=== PATIENT | female | born 1955 | race Caucasian/White ===

== ENCOUNTER → 2020-06-06 | Outpatient (CLI) | payer MEDICARE ==
[~2020-06-06] MED LIST: DCS100C PO; ENXP40I.4 SQ; ESCI20TA2 PO; FERR-57 PO; FESO8TAB PO; FLX10C; GABA800T2 PO; GBPN100C PO; GLPZ5T PO; HYDR-3002 PO; HYOS0.1217 PO; KCL20TCR; LISI5TAB14 PO; LORA0.5T PO; LOVA20TA2 PO; MTP50T; PHN100C PO; POTA10CA43 PO; TRM50T PO; WRF5T PO
[2020-06-06 10:38] LABS: HEMOGLOBIN 8.2 g/dL (11.5-16.0); MEAN PLATELET VOLUME 9.8 fL (9.0-12.2); WHITE BLOOD COUNT 6.2 10^3/uL (4.3-11.0)
[2020-06-06 11:00] LABS: ALANINE AMINOTRANSFERASE < 6 U/L (0-55); ALKALINE PHOSPHATASE 124 U/L (40-136); BILIRUBIN,TOTAL 0.2 MG/DL (0.1-1.0); BUN/CREATININE RATIO 16; CALCIUM 7.4 MG/DL (8.5-10.1); CARBON DIOXIDE 19 MMOL/L (21-32); CHLORIDE 107 MMOL/L (98-107); CREATININE SERUM 2.64 MG/DL (0.60-1.30); GFR ESTIMATED 18; GLUCOSE 241 MG/DL (70-105); MAGNESIUM 3.3 MG/DL (1.6-2.4); PHOSPHORUS 5.8 MG/DL (2.3-4.7); SODIUM 132 MMOL/L (135-145); TOTAL PROTEIN 6.7 GM/DL (6.4-8.2)
[2020-06-06 11:15] LABS: POTASSIUM 7.1 MMOL/L (3.6-5.0)
== END ==
LOC: LABNPT 10:27
PROVIDERS: ATTEND Nurse Practitioner Family
DX: D50.9 Iron deficiency anemia, unspecified (principal); E11.9 Type 2 diabetes mellitus without complications; E55.9 Vitamin D deficiency, unspecified
CPT/HCPCS: 80053; 80185; 82306; 82607; 82728; 82746; 83036; 83540; 83605; 83735; 84100; 85027

== ENCOUNTER → 2020-06-30 | Outpatient (CLI) | payer MEDICARE ==
[2020-06-30 10:44] LABS: ALBUMIN 2.7 GM/DL (3.2-4.5); BILIRUBIN,TOTAL 0.1 MG/DL (0.1-1.0); CALCIUM 7.3 MG/DL (8.5-10.1); CREATININE SERUM 2.74 MG/DL (0.60-1.30); POTASSIUM 6.4 MMOL/L (3.6-5.0); TOTAL PROTEIN 6.2 GM/DL (6.4-8.2)
== END ==
LOC: LABNPT 10:22
DX: E87.5 Hyperkalemia (principal); N18.9 Chronic kidney disease, unspecified; G82.20 Paraplegia, unspecified; E87.1 Hypo-osmolality and hyponatremia; R79.0 Abnormal level of blood mineral
CPT/HCPCS: 80053; 83735; 84100

== ENCOUNTER → 2020-07-07 | Outpatient (CLI) | payer MEDICARE ==
[2020-07-07 11:47] LABS: BILIRUBIN,URINE NEGATIVE (NEGATIVE); CLARITY,URINE TURBID; COLOR,URINE YELLOW; GLUCOSE, URINE (UA) NEGATIVE (NEGATIVE); KETONES,URINE NEGATIVE (NEGATIVE); LEUKOCYTE ESTERASE ,URINE 2+ (NEGATIVE); NITRITE,URINE POSITIVE (NEGATIVE); PH,URINE 8.5 (5-9); PROTEIN,URINE 1+ (NEGATIVE)
[2020-07-07 11:57] LABS: BACTERIA,URINE LARGE /HPF; RBC,URINE 0-2 /HPF; TRIPLE PHOSPHATE CRYSTAL,UR LARGE /LPF; WBC,URINE 0-2 /HPF
== END ==
LOC: LABNPT 11:41
PROVIDERS: ATTEND Nurse Practitioner Family
DX: N18.9 Chronic kidney disease, unspecified (principal); N17.9 Acute kidney failure, unspecified; N31.2 Flaccid neuropathic bladder, not elsewhere classified
CPT/HCPCS: 81000; 87077; 87088; 87186

== ENCOUNTER → 2020-09-08 | Outpatient (CLI) | payer MEDICARE ==
[2020-09-08 11:22] LABS: BILIRUBIN,URINE NEGATIVE (NEGATIVE); CLARITY,URINE CLOUDY; COLOR,URINE RED; GLUCOSE, URINE (UA) TRACE (NEGATIVE); KETONES,URINE NEGATIVE (NEGATIVE); LEUKOCYTE ESTERASE ,URINE 3+ (NEGATIVE); NITRITE,URINE NEGATIVE (NEGATIVE); PROTEIN,URINE 2+ (NEGATIVE)
[2020-09-08 11:34] LABS: BACTERIA,URINE LARGE /HPF; RBC,URINE TNTC /HPF; WBC,URINE 50-100 /HPF
== END ==
LOC: LABNPT 11:16
PROVIDERS: ATTEND Nurse Practitioner Family
DX: N31.9 Neuromuscular dysfunction of bladder, unspecified (principal); N39.0 Urinary tract infection, site not specified; Z96.0 Presence of urogenital implants
CPT/HCPCS: 81000; 87077; 87088; 87184

== ENCOUNTER → 2020-10-13 | Outpatient (CLI) | payer MEDICARE ==
[2020-10-13 11:00] LABS: BILIRUBIN,URINE 1+ (NEGATIVE); CLARITY,URINE SL CLOUDY; COLOR,URINE BROWN; GLUCOSE, URINE (UA) NEGATIVE (NEGATIVE); KETONES,URINE NEGATIVE (NEGATIVE); LEUKOCYTE ESTERASE ,URINE 2+ (NEGATIVE); NITRITE,URINE NEGATIVE (NEGATIVE); PH,URINE 8.5 (5-9); PROTEIN,URINE 3+ (NEGATIVE)
[2020-10-13 11:48] LABS: BACTERIA,URINE LARGE /HPF
[2020-10-13 11:49] LABS: TRIPLE PHOSPHATE CRYSTAL,UR LARGE /LPF
== END ==
LOC: LABNPT 10:00
DX: N31.9 Neuromuscular dysfunction of bladder, unspecified (principal); N39.0 Urinary tract infection, site not specified; Z96.0 Presence of urogenital implants
CPT/HCPCS: 81000; 87077; 87088; 87186

== ENCOUNTER 2020-10-30 11:22 | Inpatient (IN) | payer MEDICARE ==
[~2020-10-30] VITALS: Ht 160 cm; Wt 177.0 kg
--- NOTE | 2020-10-30 11:50 | ED General ---
General Chief Complaint: General Problems/Pain Stated Complaint: UNABLE TO TAKE CARE OF HER SELF Nursing Triage Note: PT PRESENTS TO ED VIA EMS FROM HOME WITH COMPLAINTS OF NOT BEING ABLE TO CARE FOR HERSELF. 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 Nursing Sepsis Screen: No Definite Risk Source of Information: Patient Exam Limitations: No Limitations History of Present Illness Date Seen by Provider: Oct 30, 2020 Time Seen by Provider: 11:49 Initial Comments To ER with reports of unable to care for herself. Ambulance was called by Adult Protective Services due to living conditions. Her house was infested with insects, covered in feces. She has left hemiparesis following a stroke many years ago. Her boyfriend with whom she lives and who normally provides care for her is currently admitted to the hospital as well. Timing/Duration: 1-2 Days Severity: Moderate Associated Systoms: Denies Symptoms Allergies and Home Medications Allergies Coded Allergies: Hydrocodone (Verified Allergy, Unknown, 01/16/06) acetaminophen (Verified Allergy, Unknown, 01/16/06) Home Medications Docusate Sodium 100 Mg Cap, 100 MG PO BID PRN, (Reported) Ferrous Sulfate 325 Mg Tablet, 325 MG PO DAILY, (Reported) Fesoterodine Fumarate 8 Mg Tab.sr.24h, 8 MG PO DAILY, (Reported) Glipizide 5 Mg Tablet, 5 MG PO DAILY, (Reported) Hydralazine Hcl 10 Mg Tablet, 25 MG PO BID, (Reported) Lisinopril 5 Mg Tablet, 2.5 MG PO DAILY, (Reported) Lorazepam 0.5 Mg Tablet, 1 EACH PO BID, (Reported) Lovastatin 20 Mg Tablet, 40 EACH PO DAILY, (Reported) Phenytoin Sodium Extended 100 Mg Capsule, 300 MG PO DAILY, (Reported) Phenytoin Sodium Extended 100 Mg Capsule, 200 MG PO HS, (Reported) Patient Home Medication List Home Medication List Reviewed: Yes Review of Systems Review of Systems Constitutional: see HPI EENTM: see HPI Respiratory: no symptoms reported Cardiovascular: no symptoms reported Genitourinary: no symptoms reported Musculoskeletal: no symptoms reported Skin: no symptoms reported Psychiatric/Neurological: No Symptoms Reported Hematologic/Lymphatic: No Symptoms Reported Past Ehekwxf-Rdfbhk-Uvbfcf Hx Patient Social History Alcohol Use: Denies Use Smoking Status: Never a Smoker Recent Infectious Disease Expo: No Recent Hopitalizations: Yes Immunizations Up To Date Date of Pneumonia Vaccine: Feb 02, 2013 Date of Influenza Vaccine: Feb 02, 2014 Past Medical History Surgeries: Yes Section, Gallbladder, Tonsillectomy Respiratory: No (has a nebulizer at home, denies respiratory) Cardiac: Yes Neurological: Yes (R SIDE PARALYSIS) Seizure Disorder, Stroke Reproductive Disorders: No Gastrointestinal: No Musculoskeletal: Yes (MORBID OBESITY) Endocrine: Yes Diabetes, Non-Insulin dep Cancer: No Psychosocial: No Integumentary: No Blood Disorders: No Physical Exam Vital Signs Vital Signs - First Documented 10/30/20 11:25 Temp 36.6 Pulse 81 Resp 20 B/P (MAP) 129/69 (89) Pulse Ox 99 Capillary Refill : Less Than 3 Seconds Height, Weight, BMI Height: 5'3" Weight: 377lbs. oz. 171.555950om; 69.00 BMI Method:Stated General Appearance: No Apparent Distress, WD/WN, Obese, Other (Patient voices no complaints, she is in no distress and hemodynamically stable.) Eyes: Bilateral Eye Normal Inspection, Bilateral Eye PERRL, Bilateral Eye EOMI Neck: Full Range of Motion, Normal Inspection Respiratory: No Accessory Muscle Use, No Respiratory Distress Cardiovascular: Regular Rate, Rhythm, Normal Peripheral Pulses Gastrointestinal: Normal Bowel Sounds, Non Tender, Soft Extremity: Normal Capillary Refill, Normal Inspection Neurologic/Psychiatric: Alert, Oriented x3 Skin: Normal Color, Warm/Dry Focused Exam Lactate Level 10/30/20 12:00: Lactic Acid Level 0.98 Lactic Acid Level Laboratory Tests Test 10/30/20 12:00 Lactic Acid Level 0.98 MMOL/L (0.50-2.00) Progress/Results/Core Measures Suspected Sepsis Recent Fever Within 48 Hours: No Infection Criteria Present: None New/Unexplained Altered Menta: No Sepsis Screen: No Definite Risk SIRS Temperature: Pulse: 81 Respiratory Rate: 20 Laboratory Tests 10/30/20 11:30: White Blood Count 9.9 Blood Pressure 129 /69 Mean: 89 10/30/20 12:00: Lactic Acid Level 0.98 Laboratory Tests 10/30/20 11:30: Creatinine 3.06H, Platelet Count 181, Total Bilirubin 0.2 Results/Orders Lab Results Laboratory Tests Test 10/30/20 11:30 10/30/20 12:00 10/30/20 14:32 Range/Units White Blood Count 9.9 4.3-11.0 10^3/uL Red Blood Count 2.97 L 3.80-5.11 10^6/uL Hemoglobin 9.5 L 11.5-16.0 g/dL Hematocrit 30 L 35-52 % Mean Corpuscular Volume 101 H 80-99 fL Mean Corpuscular Hemoglobin 32 25-34 pg Mean Corpuscular Hemoglobin Concent 32 32-36 g/dL Red Cell Distribution Width 13.3 10.0-14.5 % Platelet Count 181 130-400 10^3/uL Mean Platelet Volume 10.2 9.0-12.2 fL Immature Granulocyte % (Auto) 1 % Neutrophils (%) (Auto) 79 H 42-75 % Lymphocytes (%) (Auto) 12 12-44 % Monocytes (%) (Auto) 7 0-12 % Eosinophils (%) (Auto) 2 0-10 % Basophils (%) (Auto) 0 0-10 % Neutrophils # (Auto) 7.8 1.8-7.8 10^3/uL Lymphocytes # (Auto) 1.2 1.0-4.0 10^3/uL Monocytes # (Auto) 0.7 0.0-1.0 10^3/uL Eosinophils # (Auto) 0.2 0.0-0.3 10^3/uL Basophils # (Auto) 0.0 0.0-0.1 10^3/uL Immature Granulocyte # (Auto) 0.1 0.0-0.1 10^3/uL Sodium Level 142 135-145 MMOL/L Potassium Level 5.2 H 3.6-5.0 MMOL/L Chloride Level 111 H 98-107 MMOL/L Carbon Dioxide Level 19 L 21-32 MMOL/L Anion Gap 12 5-14 MMOL/L Blood Urea Nitrogen 53 H 7-18 MG/DL Creatinine 3.06 H 0.60-1.30 MG/DL Estimat Glomerular Filtration Rate 15 BUN/Creatinine Ratio 17 Glucose Level 146 H 70-105 MG/DL Calcium Level 7.8 L 8.5-10.1 MG/DL Corrected Calcium 8.5 8.5-10.1 MG/DL Total Bilirubin 0.2 0.1-1.0 MG/DL Aspartate Amino Transf (AST/SGOT) 5 5-34 U/L Alanine Aminotransferase (ALT/SGPT) < 6 0-55 U/L Alkaline Phosphatase 86 40-136 U/L Total Protein 6.9 6.4-8.2 GM/DL Albumin 3.1 L 3.2-4.5 GM/DL Lactic Acid Level 0.98 0.50-2.00 MMOL/L My Orders Orders - MAYCO STRANGE APRN Cbc With Automated Diff (10/30/20 11:47) Comprehensive Metabolic Panel (10/30/20 11:47) Blood Culture (10/30/20 11:47) Sputum Culture (10/30/20 11:47) Urinalysis (10/30/20 11:47) Urine Culture (10/30/20 11:47) Protime With Inr (10/30/20 11:47) Partial Thromboplastin Time (10/30/20 11:47) Chest 1 View, Ap/Pa Only (10/30/20 11:47) Ed Iv/Invasive Line Start (10/30/20 11:47) Vital Signs Adult Sepsis Patie Q15M (10/30/20 11:47) O2 (10/30/20 11:47) Remove Rings In Anticipation O (10/30/20 11:47) Lactic Acid Analyzer (10/30/20 11:47) Ns Iv 1000 Ml (Sodium Chloride 0.9%) (10/30/20 12:30) Vital Signs/I&O 10/30/20 11:25 Temp 36.6 Pulse 81 Resp 20 B/P (MAP) 129/69 (89) Pulse Ox 99 Capillary Refill : Less Than 3 Seconds Blood Pressure Mean: 89 Departure Communication (Admissions) We removed her old 26 [place]ian latex free Leiva catheter and replaced it with a new latex free 16 Ghanaian Leiva catheter as we do not have latex free 26 Ghanaian Leiva catheters. Impression Primary Impression: Acute kidney injury Additional Impressions: General weakness Left hemiparesis Disposition: ADMITTED INPATIENT Condition: Stable Admissions Decision to Admit Reason: Admit from ER (General) Decision to Admit/Date: Oct 30, 2020 Time/Decision to Admit Time: 14:43 Departure-Patient Inst. Referrals: [facility] (PCP/Family) Primary Care Physician MAYCO STRANGE APRN Oct 30, 2020 11:50
[2020-10-30 12:09] LABS: BASOPHILS % (AUTO) 0 % (0-10); EOSINOPHILS # (AUTO) 0.2 10^3/uL (0.0-0.3); EOSINOPHILS % (AUTO) 2 % (0-10); HEMATOCRIT 30 % (35-52); HEMOGLOBIN 9.5 g/dL (11.5-16.0); LYMPHOCYTES # (AUTO) 1.2 10^3/uL (1.0-4.0); LYMPHOCYTES % (AUTO) 12 % (12-44); MEAN CORPUSCULAR HEMOGLOBIN 32 pg (25-34); MEAN CORPUSCULAR HGB CONC 32 g/dL (32-36); MEAN CORPUSCULAR VOLUME 101 fL (80-99); MEAN PLATELET VOLUME 10.2 fL (9.0-12.2); MONOCYTES # (AUTO) 0.7 10^3/uL (0.0-1.0); MONOCYTES % (AUTO) 7 % (0-12); NEUTROPHILS # (AUTO) 7.8 10^3/uL (1.8-7.8); NEUTROPHILS % (AUTO) 79 % (42-75); PLATELET COUNT 181 10^3/uL (130-400); WHITE BLOOD COUNT 9.9 10^3/uL (4.3-11.0)
[2020-10-30 12:11] LABS: ALBUMIN 3.1 GM/DL (3.2-4.5)
[2020-10-30 12:12] LABS: CHLORIDE 111 MMOL/L (98-107); POTASSIUM 5.2 MMOL/L (3.6-5.0); SODIUM 142 MMOL/L (135-145)
[2020-10-30 12:13] LABS: CALCIUM 7.8 MG/DL (8.5-10.1)
[2020-10-30 12:14] LABS: GLUCOSE 146 MG/DL (70-105); TOTAL PROTEIN 6.9 GM/DL (6.4-8.2)
[2020-10-30 12:15] LABS: CARBON DIOXIDE 19 MMOL/L (21-32)
[2020-10-30 12:16] LABS: BILIRUBIN,TOTAL 0.2 MG/DL (0.1-1.0)
[2020-10-30 12:17] LABS: ALKALINE PHOSPHATASE 86 U/L (40-136); CREATININE SERUM 3.06 MG/DL (0.60-1.30); GFR ESTIMATED 15
[2020-10-30 12:19] LABS: BUN/CREATININE RATIO 17
[2020-10-30 12:20] LABS: ALANINE AMINOTRANSFERASE < 6 U/L (0-55)
[2020-10-30] MEDS ORDERED: NS IV 1000 ML 1,000 ML IV SCH (12:30)
--- NOTE | 2020-10-30 12:51 | Diagnostic Imaging Report ---
INDICATION: Sepsis. Time of exam 12:21 p.m. Correlation is made with prior chest 09/10/2011. The heart is enlarged. There is blunting of the left costophrenic angle which could indicate minimal pleural fluid or pleural thickening. Otherwise the lungs are clear. There is no failure. No pneumothorax is identified. IMPRESSION: Cardiomegaly with trace left pleural fluid or pleural thickening. Dictated by: Dictated on workstation # [id number]
[2020-10-30 14:37] LABS: BILIRUBIN,URINE NEGATIVE (NEGATIVE); CLARITY,URINE CLEAR; COLOR,URINE YELLOW; GLUCOSE, URINE (UA) NEGATIVE (NEGATIVE); KETONES,URINE NEGATIVE (NEGATIVE); LEUKOCYTE ESTERASE ,URINE 2+ (NEGATIVE); NITRITE,URINE POSITIVE (NEGATIVE); PROTEIN,URINE 2+ (NEGATIVE)
[2020-10-30 15:02] LABS: RBC,URINE 25-50 /HPF; WBC,URINE 25-50 /HPF
[2020-10-30 15:03] LABS: BACTERIA,URINE LARGE /HPF
[2020-10-30 15:26] VITALS: BP 122/84
[2020-10-30 16:13] LABS: PROTHROMBIN TIME PATIENT 13.3 SEC (12.2-14.7)
[2020-10-30] MEDS ORDERED: ACETAMINOPHEN 325 MG TABLET PO PRN (16:15)
[2020-10-30] MEDS ORDERED: LORazepam INJ 2 MG/ML (ATIVAN) VIAL IV PRN (16:15)
[2020-10-30] MEDS ORDERED: LORazepam 1 MG (ATIVAN) TAB PO PRN (16:15)
[2020-10-30] MEDS ORDERED: CATHETER FLUSH 10 ML SYR IV PRN (16:15)
[2020-10-30] MEDS ORDERED: ONDANSETRON 4 MG/2 ML (SDV) Z0FRAN IV PRN (16:15)
[2020-10-30] MEDS: inSUlin ASPART (NovoLOG) 1 UNIT/0.01 ML (CHARGE PER UNIT) SC SCH ×2 (16:40→21:11)
[2020-10-30] MEDS: cefTRIAXone 1,000 MG in WATER (STERILE) FOR INJECTION 10 ML IV SCH (16:40)
[2020-10-30] MEDS: LACTATED RINGERS 1,000 ML IV SCH (16:41)
--- NOTE | 2020-10-30 18:00 | History & Physical-Hospitalist ---
History of Present Illness HPI/Chief Complaint Chief complaint: Inability to care for self History of present illness: This is a 65-year-old white female clinic patient of [facility] who suffered a stroke in 2002 with left-sided weakness remains bedbound who presents to the hospital after her caregiver boyfriend was hospitalized in the same hospital and unable to care for self. Patient was found to be in atrocious living conditions with infestation. Patient is currently requiring a Sparks catheter and we will restart all of her home medication. services host will be consulted. Source: patient Exam Limitations: no limitations Date Seen 10/30/20 Time Seen by a Provider: 18:20 Attending Physician Rose Gaming DO [facility] [place] Referring Physician Date of Admission Oct 30, 2020 at 13:55 Home Medications & Allergies Home Medications Reviewed patient Home Medication Reconciliation performed by pharmacy medication reconciliations cdl service technician and/or nursing. Patients Allergies have been reviewed. Allergies Allergies Coded Allergies adhesive tape (Verified Allergy, Intermediate, 10/30/20) PT REPORTS IT PULLS SKIN OFF AND SHE GETS BLISTERS FROM TAPE ADHESIVE latex (Verified Allergy, Intermediate, 10/30/20) PT REPORTS BLADDER SPASMS WHEN USING LATEX SPARKS CATH hydrocodone (Verified Allergy, Unknown, 01/16/06) Past Fdaltnh-Kihxfj-Yulnsb Hx Patient Social History Marrital Status: cohabiting Employed/Student: unemployed Tobacco Use?: No Smoking Status: Never a Smoker Alcohol Use?: No Pt feels they are or have been: No Immunizations Up To Date Date of Influenza Vaccine: Feb 02, 2014 Tetanus Booster (TDap): Unknown Date of Pneumonia Vaccine: Feb 02, 2013 Current Status status: No status: No Advance Directives: No Communicates: Verbally Primary Language: Martiniquais Preferred Spoken Language: Martiniquais Is interpretation needed?: Yes Sensory deficits: Vision impairment Implanted or Applied Medical D: None Past Medical History Surgeries: Section, Gallbladder, Tonsillectomy Seizure Disorder, Stroke Diabetes, Non-Insulin dep Blood Disorders: No Review of Systems Constitutional: see HPI, weakness Physical Exam Physical Exam Vital Signs Vital Signs - First Documented 10/30/20 10/30/20 11:25 15:10 Temp 36.6 Pulse 81 Resp 20 B/P (MAP) 129/69 (89) Pulse Ox 99 O2 Delivery Room Air Capillary Refill : Less Than 3 Seconds Height, Weight, BMI Height: 5'3" Weight: 377lbs. oz. 171.267623ld; 69.14 BMI Method:Stated General Appearance: No Apparent Distress, Chronically ill, Obese Eyes: Right Eye Normal Inspection, Right Eye PERRL HEENT: PERRL/EOMI, Normal ENT Inspection, Pharynx Normal, Moist Mucous Membran es Neck: Full Range of Motion, Normal Inspection, Non Tender Respiratory: Chest Non Tender, Lungs Clear, Normal Breath Sounds, No Accessory Muscle Use, No Respiratory Distress Cardiovascular: Regular Rate, Rhythm, No Edema, No Gallop, No JVD, No Murmur, Normal Peripheral Pulses Gastrointestinal: Normal Bowel Sounds, No Organomegaly, No Pulsatile Mass, Non Tender, Soft Back: Normal Inspection, No CVA Tenderness, No Vertebral Tenderness Extremity: Normal Capillary Refill, Normal Inspection, Normal Range of Motion, Non Tender, No Calf Tenderness, No Pedal Edema Neurologic/Psychiatric: Alert, Oriented x3, Normal Mood/Affect, Motor Weakness (Left-sided weakness) Skin: Normal Color, Warm/Dry Lymphatic: No Adenopathy Results Results/Procedures Labs Laboratory Tests 10/30/20 11:30 Patient resulted labs reviewed. Assessment/Plan Admission Diagnosis Assessment: Inability to care for self at home due to bedbound status and caregiver in the hospital Previous stroke 2002 with left-sided weakness Severe debility bedbound Diabetes mellitus Seizure disorder Morbid obesity with BMI of 69 Plan: Supportive care Sparks catheter Home meds Admission Status: Inpatient Order (span 2 midnights) Reason for Inpatient Admission: Bedbound and inability to care for self Diagnosis/Problems Diagnosis/Problems (1) General weakness Status: Acute (2) Left hemiparesis Status: Acute (3) Acute kidney injury Status: Acute ROSE GAMING DO Oct 30, 2020 18:00
[2020-10-30] MEDS ORDERED: MONT10TA32 PO (18:46)
[2020-10-30] MEDS ORDERED: SERT-414 PO (18:46)
[2020-10-30] MEDS ORDERED: GABA-486 PO (18:46)
[2020-10-30 19:04] VITALS: BP 112/57
[2020-10-30] MEDS ORDERED: LOPERAMIDE 2 MG (IMODIUM) TABLET PO PRN (21:00)
[2020-10-30] MEDS ORDERED: ACETAMINOPHEN 500 MG TAB (TYLENOL) PO PRN (21:00)
[2020-10-30] MEDS ORDERED: MELATONIN 3 MG TABLET PO PRN (21:00)
[2020-10-30] MEDS ORDERED: SENNA W/DOCUSATE (SENOKOT S) TABLET PO PRN (21:00)
[2020-10-30] MEDS ORDERED: diphenhydrAMINE 25 MG TAB (BENADRYL) PO PRN (21:00)
[2020-10-30] MEDS ORDERED: DOCUSATE SODIUM 100 MG (COLACE) CAP PO PRN (21:00)
[2020-10-30] MEDS ORDERED: CALCIUM CARBONATE 500 MG (TUMS) TAB.CHEW PO PRN (21:00)
[2020-10-30] MEDS: SIMvastatin 20 MG (ZOCOR) TAB PO SCH (22:10)
[2020-10-30] MEDS: GABAPENTIN 100 MG (NEURONTIN) CAP PO SCH (22:11)
[2020-10-30] MEDS: LORazepam 0.5 MG (ATIVAN) TABLET PO SCH (22:11)
[2020-10-30] MEDS: SIMETHICONE 80 MG (MYLICON) CHEW PO PRN (22:11)
[2020-10-30] MEDS: MONTELUKAST 10 MG (SINGULAIR) TAB PO SCH (22:11)
[2020-10-30] MEDS: PHENYTOIN 100 MG (DILANTIN) CAP PO SCH (22:30)
[2020-10-30] MEDS: ENOXAPARIN 60 MG/0.6 ML (LOVENOX) SYR SC SCH (22:30)
[2020-10-31] VITALS (7 sets, daily range): BP systolic 102–132; BP diastolic 48–66
[2020-10-31] MEDS: LACTATED RINGERS 1,000 ML IV SCH (01:54)
[2020-10-31 06:28] LABS: BASOPHILS % (AUTO) 0 % (0-10); EOSINOPHILS # (AUTO) 0.2 10^3/uL (0.0-0.3); EOSINOPHILS % (AUTO) 2 % (0-10); HEMATOCRIT 26 % (35-52); HEMOGLOBIN 8.1 g/dL (11.5-16.0); LYMPHOCYTES # (AUTO) 1.2 10^3/uL (1.0-4.0); LYMPHOCYTES % (AUTO) 17 % (12-44); MEAN CORPUSCULAR HEMOGLOBIN 31 pg (25-34); MEAN CORPUSCULAR HGB CONC 31 g/dL (32-36); MEAN CORPUSCULAR VOLUME 101 fL (80-99); MEAN PLATELET VOLUME 9.9 fL (9.0-12.2); MONOCYTES # (AUTO) 0.7 10^3/uL (0.0-1.0); MONOCYTES % (AUTO) 9 % (0-12); NEUTROPHILS # (AUTO) 5.3 10^3/uL (1.8-7.8); NEUTROPHILS % (AUTO) 71 % (42-75); PLATELET COUNT 132 10^3/uL (130-400); WHITE BLOOD COUNT 7.4 10^3/uL (4.3-11.0)
[2020-10-31] MEDS: inSUlin ASPART (NovoLOG) 1 UNIT/0.01 ML (CHARGE PER UNIT) SC SCH ×4 (06:28→21:01)
--- NOTE | 2020-10-31 06:30 | Progress Note - Hospitalist ---
Subjective HPI/CC On Admission Date Seen by Provider: Oct 31, 2020 Time Seen by Provider: 09:00 Chief complaint: Inability to care for self History of present illness: This is a 65-year-old white female clinic patient of [facility] who suffered a stroke in 2002 with left-sided weakness remains bedbound who presents to the hospital after her caregiver boyfriend was hospitalized in the same hospital and unable to care for self. Patient was found to be in atrocious living conditions with infestation. Patient is currently requiring a Leiva catheter and we will restart all of her home medication. support services tech will be consulted. Subjective/Events-last exam Pt had an uneventful night Bacteremia of Staph noted so initiated Zyvox due to chronic kidney disease Creatinine 2.94 today E. coli on UTI so Rocephin will be maintained Hep-locking IV fluid Midline will be needed due to morbid obesity Review of Systems General: Fatigue Focused Exam Lactate Level 10/30/20 12:00: Lactic Acid Level 0.98 Objective Exam Vital Signs Vital Signs Date Time Temp Pulse Resp B/P (MAP) Pulse Ox O2 Delivery O2 Flow Rate FiO2 11/01/20 04:32 36.6 79 18 102/50 (67) 97 Room Air Capillary Refill : Less Than 3 Seconds General Appearance: No Apparent Distress, WD/WN, Chronically ill, Obese Respiratory: Lungs Clear Cardiovascular: Regular Rate, Rhythm Neurologic/Psychiatric: Alert, Oriented x3 Results/Procedures Lab Laboratory Tests 10/31/20 06:15 Patient resulted labs reviewed. Assessment/Plan Assessment and Plan Assess & Plan/Chief Complaint Assessment: Inability to care for self at home due to bedbound status and caregiver in the hospital Previous stroke 2002 with left-sided weakness Staph bacteremia placed on Zyvox Chronic kidney disease UTI on Rocephin Severe debility bedbound Diabetes mellitus Seizure disorder Morbid obesity with BMI of 69 Plan: Supportive care Leiva catheter Home meds 10/31/2020: Home meds PT and OT shelter placement Antibiotics Diagnosis/Problems Diagnosis/Problems (1) General weakness Status: Acute (2) Left hemiparesis Status: Acute (3) Acute kidney injury Status: Acute THEA ROSE DO Oct 31, 2020 06:30
[2020-10-31 06:39] LABS: ALBUMIN 2.7 GM/DL (3.2-4.5); CHLORIDE 112 MMOL/L (98-107); SODIUM 139 MMOL/L (135-145)
[2020-10-31 06:40] LABS: CALCIUM 7.4 MG/DL (8.5-10.1)
[2020-10-31 06:41] LABS: GLUCOSE 97 MG/DL (70-105); TOTAL PROTEIN 5.7 GM/DL (6.4-8.2)
[2020-10-31 06:42] LABS: CARBON DIOXIDE 17 MMOL/L (21-32)
[2020-10-31 06:43] LABS: BILIRUBIN,TOTAL 0.2 MG/DL (0.1-1.0)
[2020-10-31 06:45] LABS: ALKALINE PHOSPHATASE 74 U/L (40-136); CREATININE SERUM 2.94 MG/DL (0.60-1.30); GFR ESTIMATED 16
[2020-10-31 06:46] LABS: BUN/CREATININE RATIO 18
[2020-10-31 06:48] LABS: ALANINE AMINOTRANSFERASE < 6 U/L (0-55)
[2020-10-31] MEDS: LORazepam 0.5 MG (ATIVAN) TABLET PO SCH ×2 (08:35→21:12)
[2020-10-31] MEDS: ENOXAPARIN 60 MG/0.6 ML (LOVENOX) SYR SC SCH ×2 (08:35→21:12)
[2020-10-31] MEDS: glipiZIDE 5 MG (GLUCOTROL) TAB PO SCH (08:35)
[2020-10-31] MEDS: PHENYTOIN 100 MG (DILANTIN) CAP PO SCH ×2 (08:35→21:12)
[2020-10-31] MEDS: SERTRALINE 100 MG (ZOLOFT) TAB PO SCH (08:35)
[2020-10-31] MEDS: LINEZOLID IVPB 300 ML IV SCH ×2 (12:33→21:12)
--- NOTE | 2020-10-31 13:35 | Occupational Therapy Eval ---
OT Evaluation-General/PLF Medical Diagnosis Admission Date Oct 30, 2020 at 13:55 Medical Diagnosis: TYRONE, generalized weakness Onset Date: Oct 30, 2020 Therapy Diagnosis Therapy Diagnosis: weakness Height/Weight Height (Feet): 5 Height (Inches): 3 Weight (Pounds): 377 Precautions Precautions/Isolations: Contact Isolation, Fall Prevention Referral Physician: Amberly Waterman Reason: Evaluation/Treatment Medical History Pertinent Medical History: CVA, DM Additional Medical History seizure Current History Present to hospital after her caregiver/SO was hospitalized and she is unable to care for herself. Pt's house was found to be infested with insects and covered in feces. Social History Current Living Status: Significant Other ADL-Prior Level of Function SCALE: Activities may be completed with or without assistive devices. 4-Naktnyabpu-rilupmm completes the activity by him/herself with no assistance from a helper. 5-Set-up or Clean-up Assistance-helper sets up or cleans up; patient completes activity. [place] assists only prior to or following the activity. 4-Supervision or Touching Assistance-helper provides verbal cues and/or touching/steadying and/or contact guard assistance as patient completes activity. Assistance may be provided throughout the activity or intermittently. 3-Partial/Moderate Assistance-helper does LESS THAN HALF the effort. [place] lifts, holds or supports trunk or limbs, but provides less than half the effort. 2-Substantial/Maximal Assistance-helper does MORE THAN HALF the effort. [place] lifts or holds trunk or limbs and provides more than half the effort. 8-Himospbcv-wrkfgs does ALL the effort. Patient does none of the effort to complete the activity. Or, the assistance of 2 or more helpers is required for the patient to complete the activity. If activity was not attempted, code reason: 7-Patient Refused. 9-Not Applicable-not attempted and the patient did not perform the activity before the current illness, exacerbation or injury. 10-Not Attempted due to Environmental Limitations-(lack of equipment, weather restraints, etc.). 88-Not Attempted due to Medical Conditions or Safety Concerns. ADL PLOF Comments Pt reports she has been bedbound for many years, she has a bath aide come in 2-3 times a week. She does not get dressed, she instead uses a bed sheet to cover up. She is unable to get to the bathroom, instead wears depends which get changed when she soils them. Pt is able to eat meals after set up assist with RUE. Self Care: Needed Some Help OT Current Status Subjective Pt laying in bed, agreeable to OT tx. Mental Status/Objective Patient Orientation: Person, Place, Situation Attachments: Leiva Catheter, IV Current Upper Extremity ROM RUE WFL, LUE no functional movement (unable to perform PROM as pt reports increased pain and hollers in pain) Upper Extremity Coordination WFL RUE, LUE decreased. Upper Extremity Sensation Decreased LUE Upper Extremity Strength RUE grossly 3/5, LUE 0/5 ADL-Treatment Eating (QC): 5 (Pt able to use utensils to eat lunch) Oral Hygiene (QC): 5 (based on clincial judgement) Shower/Bathe Self (QC): 1 (Per nurse report, dependent sponge bath) Upper Body Dressing (QC): 9 Lower Body Dressing (QC): 1 (Based on clincial judgement, total assist) On/Off Footwear (QC): 1 (based on clincial judgement, total assist) Toileting Hygiene (QC): 1 (based on clinical judgement, total assist.) Other Treatments Pt laying in bed finishing lunch, agreeable to OT evaluation/tx. OT educated pt on purpose and benefit of OT, she verbalized understanding. Pt provided information about PLOF and home set up, and participated in UE screen. Pt indicates she has not been able to use LUE since her stroke in 2002, OT attempted to perform PROM, but slight movements caused pt to holler out in pain. Pt able to eat lunch and comb hair with set up assistance. Assist x2 to reposition pt in bed. Post tx, pt laying in bed, call light in reach and all needs met. Education OT Patient Education: Correct positioning, Energy conservation, Modified ADL techniques, Progress toward Goal/Update tx plan, Purpose of tx/functional activities, Rehab process Teaching Recipient: Patient Teaching Methods: Discussion Response to Teaching: Verbalize Understanding OT Window Caser Goals Window Caser Goals 1=Demonstrate adherence to instructed precautions during ADL tasks. 2=Patient will verbalize/demonstrate understanding of assistive devices/modifications for ADL. 3=Patient will improve strength/tolerance for activity to enable patient to perform ADL's. OT Education/Plan Problem List/Assessment Assessment: No Skilled OT Needs ID'd No skilled OT services required as pt is at her PLOF, requiring dependent assistance with bathing/dressing/toileting, and bed bound status. Discharge Recommendations Plan/Recommendations: Discharge/Goals Met Treatment Plan/Plan of Care Treatment,Training & Education: Yes Patient would benefit from OT for education, treatment and training to promote independence in ADL's, mobility, safety and/or upper extremity function for ADL's. Plan of Care: ADL Retraining, Functional Mobility, UE Funct Exercise/Act Treatment Duration: Oct 31, 2020 Frequency: 1 time per week (eval only) Time/GCodes Start Time: 13:05 Stop Time: 13:20 Total Time Billed (hr/min): 15 Billed Treatment Time 1, BENJAMIN ORTEGA OT Oct 31, 2020 13:35
[2020-10-31] MEDS ORDERED: [UNRECOGNIZED DRUG - CODE] PO (13:42)
[2020-10-31] MEDS ORDERED: LISI2.5T PO (13:42)
[2020-10-31] MEDS ORDERED: GLIP5TAB13 PO (13:42)
[2020-10-31] MEDS ORDERED: LOVA40TA2 PO (13:42)
[2020-10-31] MEDS ORDERED: SIME180C4 PO (13:42)
[2020-10-31] MEDS ORDERED: PHEN100C11 PO ×2 (13:42)
[2020-10-31] MEDS ORDERED: CARI3CAP PO (13:42)
[2020-10-31] MEDS ORDERED: NAPR220T66 PO (13:42)
--- NOTE | 2020-10-31 14:41 | Physical Therapy Evaluation ---
PT Evaluation-General Medical Diagnosis Admission Date Oct 30, 2020 at 13:55 Medical Diagnosis: TYRONE, generalized weakness Onset Date: Oct 30, 2020 Therapy Diagnosis Therapy Diagnosis: impaired mobility Height/Weight Height (Feet): 5 Height (Inches): 3 Weight (Pounds): 377 Precautions Precautions/Isolations: Contact Isolation, Fall Prevention Referral Physician: Amberly Reason for Referral: Evaluation/Treatment Medical History Pertinent Medical History: CVA, DM Additional Medical History seizure/morbid obesity Current History EMS secondary to inability to care for self due to patient's caregiver is currently in the hospital (patient has not been OOB x 10 years) Reviewed History: Yes Social History Home: Single Level Current Living Status: Significant Other Prior Prior Level of Function SCALE: Activities may be completed with or without assistive devices. 4-Pkoqosealv-zgremri completes the activity by him/herself with no assistance from a helper. 5-Set-up or Clean-up Assistance-helper sets up or cleans up; patient completes activity. [place] assists only prior to or following the activity. 4-Supervision or Touching Assistance-helper provides verbal cues and/or touching/steadying and/or contact guard assistance as patient completes activity. Assistance may be provided throughout the activity or intermittently. 3-Partial/Moderate Assistance-helper does LESS THAN HALF the effort. [place] lifts, holds or supports trunk or limbs, but provides less than half the effort. 2-Substantial/Maximal Assistance-helper does MORE THAN HALF the effort. [place] lifts or holds trunk or limbs and provides more than half the effort. 6-Hgxlmyfiq-ifqyzh does ALL the effort. Patient does none of the effort to complete the activity. Or, the assistance of 2 or more helpers is required for the patient to complete the activity. If activity was not attempted, code reason: 7-Patient Refused. 9-Not Applicable-not attempted and the patient did not perform the activity before the current illness, exacerbation or injury. 10-Not Attempted due to Environmental Limitations-(lack of equipment, weather restraints, etc.). 88-Not Attempted due to Medical Conditions or Safety Concerns. Bed Mobility: 1 Transfers (B,C,W/C): 9 Gait: 9 Stairs: 9 Wheelchair Mobility: 9 Indoor Mobility (Ambulation): Not [place] Stairs: Not [place] PT Evaluation-Current Subjective Patient reports she has not been OOB for 10 years due to a stroke. Patient states her boyfriend is her caregiver. Objective Patient Orientation: Normal For Age ROM/Strength ROM Lower Extremities right knee flexion contracture/left LE WFL Strength Lower Extremities right LE NT/left LE flaccid Integumentary/Posture Integumentary refer to nursing notes Bladder Incontinence: Leiva Cath Neuromuscular (Tone, Coordination, Reflexes) diminished with all bilaterally (left LE flaccid) Sensory Vision: Functional Hearing: Functional Transfers Roll Left to Right (QC): 1 (x 3) Sit to Lying (QC): 9 Lying to Sitting/Side of Bed(Q: 9 Sit to Stand (QC): 9 Chair/Kgh-zq-Juvtg Xfer(QC): 9 Toilet Transfer (QC): 9 Car Transfer (QC): 9 Gait Does the Patient Walk?: No and Walking Goal NOT indicated Wheelchair Training Does the Pt Use a Wheelchair?: No Assessment/Needs Patient is currently at dependent PLOF with all gross motor skills and does not require skilled therapy intervention. Patient has been bed bound x 10 years. Rehab Potential: Poor PT Plan Treatment/Plan Treatment Plan: Discontinue PT Treatment Duration: Oct 31, 2020 Frequency: 1 time per week Estimated Hrs Per Day: .25 hour per day Patient and/or Family Agrees t: Yes Time/GCodes Time In: 1320 Time Out: 1331 Total Billed Treatment Time: 11 Total Billed Treatment 1 visit EVLowC 11 min GISELA JEFF PT Oct 31, 2020 14:41
[2020-10-31] MEDS: cefTRIAXone 1,000 MG in WATER (STERILE) FOR INJECTION 10 ML IV SCH (15:38)
[2020-10-31] MEDS ORDERED: PERMETHRIN (ELIMITE) 5% CR 60 GM TUBE TOP NR (18:00)
[2020-10-31] MEDS: GABAPENTIN 100 MG (NEURONTIN) CAP PO SCH (21:12)
[2020-10-31] MEDS: MONTELUKAST 10 MG (SINGULAIR) TAB PO SCH (21:12)
[2020-10-31] MEDS: SIMvastatin 20 MG (ZOCOR) TAB PO SCH (21:12)
[2020-10-31] MEDS: MICONAZOLE 2% POWDER (DESENEX AF) 90 GM TOP SCH (21:13)
[2020-10-31] MEDS: SIMETHICONE 80 MG (MYLICON) CHEW PO PRN (22:26)
--- NOTE | 2020-10-31 22:51 | Consultation - Surgery ---
History of Present Illness History of Present Illness Patient Consulted On(manolo/time) 10/31/20 22:45 Date Seen by Provider: Oct 31, 2020 Time Seen by Provider: 15:30 History of Present Illness Consult requested by Dr. Gaming for possible breast mass. Patient is a 65-year-old female who has a history of stroke in 2002 leaving her with left-sided weakness. Patient with morbid obesity. Unable to care for herself. Her primary caregiver she reports is in the hospital. Patient has never had a mammogram. Patient has changes to the right breast which she states is due to pressure being on the breast causing necrosis. She states has been there for about a month or 2. She has no pain in the breast she states. She has not noticed any other changes with the breast. Patient has no other complaints at this time. Denies any nausea vomiting fever sweats chills shortness of breath or chest pain. Allergies and Home Medications Allergies Coded Allergies: adhesive tape (Verified Allergy, Intermediate, 10/30/20) PT REPORTS IT PULLS SKIN OFF AND SHE GETS BLISTERS FROM TAPE ADHESIVE latex (Verified Allergy, Intermediate, 10/30/20) PT REPORTS BLADDER SPASMS WHEN USING LATEX SPARKS CATH hydrocodone (Verified Allergy, Unknown, 01/16/06) Home Medications Cariprazine Hydrochloride 3 Mg Capsule, 3 MG PO DAILY, (Reported) Last Action: Reviewed Darifenacin Hydrobromide 7.5 Mg Tab.er.24h, 7.5 MG PO BID, (Reported) Last Action: Reviewed Gabapentin 100 Mg Capsule, 100 MG PO BID, (Reported) Last Action: Reviewed Glipizide 5 Mg Tablet, 5 MG PO DAILY, (Reported) Last Action: Reviewed Lisinopril 2.5 Mg Tablet, 2.5 MG PO DAILY, (Reported) Last Action: Reviewed Lovastatin 40 Mg Tablet, 40 MG PO HS, (Reported) Last Action: Reviewed Montelukast Sodium 10 Mg Tablet, 10 MG PO DAILY, (Reported) Last Action: Reviewed Naproxen Sodium 220 Mg Tablet, 220-440 MG PO BID PRN for PAIN-MILD (1-4), (Reported) Last Action: Reviewed Phenytoin Sodium Extended 100 Mg Capsule, 200 MG PO HS, (Reported) TAKES 2 (100MG) CAPS Last Action: Reviewed Phenytoin Sodium Extended 100 Mg Capsule, 300 MG PO DAILY, (Reported) TAKES 3 (100MG) CAPS Last Action: Reviewed Sertraline HCl 100 Mg Tablet, 150 MG PO DAILY, (Reported) TAKES 1 & (100MG) TABS Last Action: Reviewed Simethicone 180 Mg Capsule, 180 MG PO UD PRN for GAS, (Reported) Last Action: Reviewed Patient Home Medication List Home Medication List Reviewed: Yes Past Ehdpzpj-Upkkci-Vjkajl Hx Patient Social History Smoking Status: Never a Smoker Recent Hopitalizations: Yes Alcohol Use?: No Have you traveled recently?: No Immunizations Up To Date Date of Pneumonia Vaccine: Feb 02, 2013 Date of Influenza Vaccine: Feb 02, 2014 Surgeries History of Surgeries: Yes Surgeries: Section, Gallbladder, Tonsillectomy Respiratory History of Respiratory Disorde: No (has a nebulizer at home, denies respiratory) Cardiovascular History of Cardiac Disorders: Yes Neurological History of Neurological Disord: Yes (R SIDE PARALYSIS) Neurological Disorders: Seizure Disorder, Stroke Reproductive System Hx Reproductive Disorders: No Gastrointestinal History of Gastrointestinal Di: No Musculoskeletal History of Musculoskeletal Dis: Yes (MORBID OBESITY) Endocrine History of Endocrine Disorders: Yes Endocrine Disorders: Diabetes, Non-Insulin dep Cancer History of Cancer: No Psychosocial History of Psychiatric Problem: No Integumentary History of Skin or Integumenta: No Blood Transfusions History of Blood Disorders: No Reviewed Nursing Assessment Reviewed/Agree w Nursing PMH: Yes Family Medical History Significant Family History: No Pertinent Family Hx Review of Systems-General Constitutional: No chills, No diaphoresis EENTM: No blurred vision, No double vision Respiratory: No cough, No dyspnea on exertion Cardiovascular: No chest pain, No palpitations Gastrointestinal: No abdominal pain, No diarrhea, No nausea, No vomiting Genitourinary: No decreased output, No discharge Musculoskeletal: No back pain, No joint pain Skin: No change in color, No change in hair/nails Psychiatric/Neurological: Denies Anxiety, Denies Depressed, Denies Emotional Problems All Other Systems Reviewed Negative Unless Noted: Yes (Negative excepted noted.) Physical Exam-General Problems Physical Exam Vital Signs Vital Signs - First Documented 10/30/20 10/30/20 11:25 15:10 Temp 36.6 Pulse 81 Resp 20 B/P (MAP) 129/69 (89) Pulse Ox 99 O2 Delivery Room Air Capillary Refill : Less Than 3 Seconds General Appearance: no apparent distress, obese HEENT: PERRL/EOMI, normal ENT inspection Neck: non-tender, supple Respiratory: chest non-tender, no respiratory distress, no accessory muscle use Cardiovascular: regular rate, rhythm, no JVD Gastrointestinal: non tender, soft Rectal: deferred Back: no CVA tenderness Extremities: swelling Neurologic/Psychiatric: alert, normal mood/affect, oriented x 3, motor weakness (left side) Skin: normal color, warm/dry Lymphatic: no adenopathy Data Review Labs Laboratory Tests 10/31/20 05:45: Glucometer 89 10/31/20 06:15: White Blood Count 7.4, Red Blood Count 2.60L, Hemoglobin 8.1L, Hematocrit 26L, Mean Corpuscular Volume 101H, Mean Corpuscular Hemoglobin 31, Mean Corpuscular Hemoglobin Concent 31L, Red Cell Distribution Width 13.3, Platelet Count 132, Mean Platelet Volume 9.9, Immature Granulocyte % (Auto) 0, Neutrophils (%) (Auto) 71, Lymphocytes (%) (Auto) 17, Monocytes (%) (Auto) 9, Eosinophils (%) (Auto) 2, Basophils (%) (Auto) 0, Neutrophils # (Auto) 5.3, Lymphocytes # (Auto) 1.2, Monocytes # (Auto) 0.7, Eosinophils # (Auto) 0.2, Basophils # (Auto) 0.0, Immature Granulocyte # (Auto) 0.0, Sodium Level 139, Potassium Level 5.0, Chloride Level 112H, Carbon Dioxide Level 17L, Anion Gap 10, Blood Urea Nitrogen 52H, Creatinine 2.94H, Estimat Glomerular Filtration Rate 16, BUN/Creatinine Ratio 18, Glucose Level 97, Calcium Level 7.4L, Corrected Calcium 8.4L, Total Bilirubin 0.2, Aspartate Amino Transf (AST/SGOT) 4L, Alanine Aminotransferase (ALT/SGPT) < 6, Alkaline Phosphatase 74, Total Protein 5.7L, Albumin 2.7L 10/31/20 12:01: Glucometer 164H 10/31/20 15:52: Glucometer 189H 10/31/20 20:30: Glucometer 140H Microbiology 10/30/20 Urine Culture - Preliminary, Resulted Escherichia coli 10/30/20 Blood Culture - Preliminary, Resulted Probable Coag Negative Staph Assessment/Plan Assessment/Plan Assessment/Plan b/l breast mass- may be area of dense breast tissue but will get b/l mammogram to evaluate, patient never had previous mammograms left sided weakness with history of stroke in 2002. Morbid obesity Further recommendations pending mammogram MADELINE HARRELL DO Oct 31, 2020 22:51
[2020-11-01 04:32] VITALS: BP 102/50
[2020-11-01] MEDS: inSUlin ASPART (NovoLOG) 1 UNIT/0.01 ML (CHARGE PER UNIT) SC SCH ×4 (06:04→20:30)
--- NOTE | 2020-11-01 06:34 | Progress Note - Hospitalist ---
Subjective HPI/CC On Admission Date Seen by Provider: Nov 01, 2020 Time Seen by Provider: 09:30 Chief complaint: Inability to care for self History of present illness: This is a 65-year-old white female clinic patient of [facility] who suffered a stroke in 2002 with left-sided weakness remains bedbound who presents to the hospital after her caregiver boyfriend was hospitalized in the same hospital and unable to care for self. Patient was found to be in atrocious living conditions with infestation. Patient is currently requiring a Leiva catheter and we will restart all of her home medication. pharmacy services representative will be consulted. Subjective/Events-last exam Pt doing pretty well Hgb 7.8 Creatinine up at 3.29 Maintain on Rocephin and Zyvox Urine culture pending Blood culture pending Refused mammogram for the left breast mass and she refused that so will get ultrasound Discontinued the Lovenox due to declining Hgb and rising creatinine Review of Systems General: Fatigue, Malaise Focused Exam Lactate Level 10/30/20 12:00: Lactic Acid Level 0.98 Objective Exam Vital Signs Vital Signs Date Time Temp Pulse Resp B/P (MAP) Pulse Ox O2 Delivery O2 Flow Rate FiO2 11/01/20 23:36 36.1 66 18 97/49 (65) 98 Room Air Capillary Refill : Less Than 3 Seconds General Appearance: No Apparent Distress, WD/WN, Chronically ill, Obese Respiratory: Lungs Clear Cardiovascular: Regular Rate, Rhythm Neurologic/Psychiatric: Alert, Oriented x3, Depressed Affect Results/Procedures Lab Laboratory Tests 11/01/20 08:05 Patient resulted labs reviewed. Assessment/Plan Assessment and Plan Assess & Plan/Chief Complaint Assessment: Inability to care for self at home due to bedbound status and caregiver in the hospital Previous stroke 2002 with left-sided weakness Staph bacteremia placed on Zyvox Chronic kidney disease UTI on Rocephin Severe debility bedbound Diabetes mellitus Seizure disorder Morbid obesity with BMI of 69 Plan: Supportive care Leiva catheter Home meds 10/31/2020: Home meds PT and OT [facility] placement Antibiotics 11/01/2020: Monitor creatinine Continue antibiotics [facility] at discharge Diagnosis/Problems Diagnosis/Problems (1) General weakness Status: Acute (2) Left hemiparesis Status: Acute (3) Acute kidney injury Status: Acute THEA ROSE DO Nov 01, 2020 06:34
[2020-11-01] MEDS: glipiZIDE 5 MG (GLUCOTROL) TAB PO SCH (06:37)
[2020-11-01 07:22] VITALS: BP 147/67
[2020-11-01 08:14] LABS: HEMOGLOBIN 7.8 g/dL (11.5-16.0); MEAN CORPUSCULAR VOLUME 104 fL (80-99)
[2020-11-01 08:15] LABS: BASOPHILS % (AUTO) 1 % (0-10); EOSINOPHILS # (AUTO) 0.1 10^3/uL (0.0-0.3); EOSINOPHILS % (AUTO) 2 % (0-10); HEMATOCRIT 25 % (35-52); LYMPHOCYTES # (AUTO) 1.1 10^3/uL (1.0-4.0); LYMPHOCYTES % (AUTO) 17 % (12-44); MEAN CORPUSCULAR HEMOGLOBIN 32 pg (25-34); MEAN CORPUSCULAR HGB CONC 31 g/dL (32-36); MEAN PLATELET VOLUME 9.8 fL (9.0-12.2); MONOCYTES # (AUTO) 0.5 10^3/uL (0.0-1.0); MONOCYTES % (AUTO) 7 % (0-12); NEUTROPHILS # (AUTO) 4.7 10^3/uL (1.8-7.8); NEUTROPHILS % (AUTO) 74 % (42-75); PLATELET COUNT 126 10^3/uL (130-400); WHITE BLOOD COUNT 6.4 10^3/uL (4.3-11.0)
[2020-11-01 08:41] LABS: ALBUMIN 2.7 GM/DL (3.2-4.5); BILIRUBIN,TOTAL 0.1 MG/DL (0.1-1.0); CALCIUM 7.4 MG/DL (8.5-10.1); CREATININE SERUM 3.29 MG/DL (0.60-1.30); POTASSIUM 5.4 MMOL/L (3.6-5.0); TOTAL PROTEIN 5.4 GM/DL (6.4-8.2)
[2020-11-01] MEDS: DARIFENACIN 7.5 MG PO SCH ×2 (08:53→20:29)
[2020-11-01] MEDS: LINEZOLID IVPB 300 ML IV SCH ×2 (08:53→20:28)
[2020-11-01] MEDS: PHENYTOIN 100 MG (DILANTIN) CAP PO SCH ×2 (08:53→20:28)
[2020-11-01] MEDS: LORazepam 0.5 MG (ATIVAN) TABLET PO SCH ×2 (08:54→20:28)
[2020-11-01] MEDS: SERTRALINE 100 MG (ZOLOFT) TAB PO SCH (08:54)
[2020-11-01] MEDS: MICONAZOLE 2% POWDER (DESENEX AF) 90 GM TOP SCH ×2 (08:55→20:29)
[2020-11-01] MEDS ORDERED: NON-FORMULARY MEDICATION 1 EA EA (Cariprazine Hydrochloride (Vraylar) 3 MG) PO SCH (09:00)
[2020-11-01] MEDS ORDERED: PHENYTOIN 100 MG (DILANTIN) CAP PO SCH ×2 (09:00→21:00)
[2020-11-01] MEDS ORDERED: glipiZIDE 5 MG (GLUCOTROL) TAB PO SCH (09:00)
[2020-11-01] MEDS ORDERED: ACETAMINOPHEN 325 MG TABLET PO PRN (10:00)
--- NOTE | 2020-11-01 13:02 | Progress Note - Surgery ---
Subjective Date Seen by a Provider: Nov 01, 2020 Time Seen by a Provider: 12:58 Subjective/Events-last exam Patient states that she does not want any thing done with her breasts. Patient refused mammogram. She did allow the right breast to be ultrasound. Patient states she is doing well. She just wants to eat her lunch. She has no new complaints. Denies any nausea vomiting fever sweats chills shortness of breath or chest pain. Focused Exam Lactate Level 10/30/20 12:00: Lactic Acid Level 0.98 Objective Exam Vital Signs Date Time Temp Pulse Resp B/P (MAP) Pulse Ox O2 Delivery O2 Flow Rate FiO2 11/01/20 09:00 Room Air 11/01/20 07:22 36.6 91 20 147/67 (93) 96 Room Air 11/01/20 04:32 36.6 79 18 102/50 (67) 97 Room Air 10/31/20 23:30 36.3 74 20 107/50 (69) 97 Room Air 10/31/20 21:00 Room Air 10/31/20 19:33 36.2 77 20 102/48 (66) 96 Room Air 10/31/20 15:53 36.3 75 18 116/56 (76) 98 Room Air I & O 11/01/20 07:00 Intake Total 1880 ml Output Total 700 ml Balance 1180 ml Capillary Refill : Less Than 3 Seconds General Appearance: No Apparent Distress, WD/WN, Chronically ill, Obese HEENT: PERRL/EOMI, Normal ENT Inspection, Pharynx Normal, Moist Mucous Membranes Neck: Full Range of Motion, Normal Inspection, Non Tender Respiratory: Lungs Clear Cardiovascular: Regular Rate, Rhythm Gastrointestinal: non tender, soft Extremity: Normal Capillary Refill, Normal Inspection, Normal Range of Motion, Non Tender, No Calf Tenderness, No Pedal Edema Neurologic/Psychiatric: Alert, Oriented x3, Motor Weakness (Left) Skin: Normal Color, Warm/Dry Lymphatic: No Adenopathy Results Lab Laboratory Tests 10/31/20 15:52: Glucometer 189H 10/31/20 20:30: Glucometer 140H 11/01/20 06:03: Glucometer 166H 11/01/20 08:05: White Blood Count 6.4, Red Blood Count 2.45L, Hemoglobin 7.8L, Hematocrit 25L, Mean Corpuscular Volume 104H, Mean Corpuscular Hemoglobin 32, Mean Corpuscular Hemoglobin Concent 31L, Red Cell Distribution Width 13.2, Platelet Count 126L, Mean Platelet Volume 9.8, Immature Granulocyte % (Auto) 1, Neutrophils (%) (Auto) 74, Lymphocytes (%) (Auto) 17, Monocytes (%) (Auto) 7, Eosinophils (%) (Auto) 2, Basophils (%) (Auto) 1, Neutrophils # (Auto) 4.7, Lymphocytes # (Auto) 1.1, Monocytes # (Auto) 0.5, Eosinophils # (Auto) 0.1, Basophils # (Auto) 0.0, Immature Granulocyte # (Auto) 0.0, Percent Immature Platelet Fraction 1.5, Sodium Level 136, Potassium Level 5.4H, Chloride Level 110H, Carbon Dioxide Level 17L, Anion Gap 9, Blood Urea Nitrogen 53H, Creatinine 3.29H, Estimat Glomerular Filtration Rate 14, BUN/Creatinine Ratio 16, Glucose Level 174H, Calcium Level 7.4L, Corrected Calcium 8.4L, Total Bilirubin 0.1, Aspartate Amino Transf (AST/SGOT) 4L, Alanine Aminotransferase (ALT/SGPT) 7, Alkaline Phosphatase 66, Total Protein 5.4L, Albumin 2.7L 11/01/20 10:17: Glucometer 215H Microbiology 10/30/20 Urine Culture - Preliminary, Resulted Escherichia coli 10/30/20 Blood Culture - Preliminary, Resulted Probable Coag Negative Staph Assessment/Plan Assessment/Plan Assessment/Plan b/l breast mass- may be area of dense breast tissue but will get b/l mammogram to evaluate, patient never had previous mammograms left sided weakness with history of stroke in 2002. Morbid obesity Patient refused mammogram. Did allow ultrasound of right breast refused left br east. Patient states she does not want anything with her breast done. Had long discussion about work-up she understands but this does not change her mind. Continue with medical management. Will sign off at this time since patient is not anything further done. Please call if needed. MADELINE HARRELL DO Nov 01, 2020 13:02
--- NOTE | 2020-11-01 13:15 | Diagnostic Imaging Report ---
INDICATION: Skin thickening and redness in the right outer breast. Patient refused mammography. Sonographic evaluation of the area of skin thickening outer right breast was performed. No underlying mass is seen. No cyst or other abnormality is detected. There is no fluid collection. IMPRESSION: BI-RADS Category 1 No sonographic abnormality is detected. ACR BI-RADS Category 1: Negative. Dictated by: Dictated on workstation # [id number]
[2020-11-01 16:00] VITALS: BP 101/54
[2020-11-01] MEDS: cefTRIAXone 1,000 MG in WATER (STERILE) FOR INJECTION 10 ML IV SCH (16:31)
[2020-11-01] MEDS: GABAPENTIN 100 MG (NEURONTIN) CAP PO SCH (20:28)
[2020-11-01] MEDS: SIMvastatin 20 MG (ZOCOR) TAB PO SCH (20:28)
[2020-11-01] MEDS: MONTELUKAST 10 MG (SINGULAIR) TAB PO SCH (20:28)
[2020-11-01] MEDS: ENOXAPARIN 30 MG/0.3 ML (LOVENOX) SYR SC SCH (20:29)
[2020-11-01] MEDS: SIMETHICONE 80 MG (MYLICON) CHEW PO PRN (20:36)
[2020-11-01] MEDS ORDERED: NON-FORMULARY MEDICATION 1 EA EA (Lovastatin 40 MG) PO SCH (21:00)
[2020-11-01 23:36] VITALS: BP 97/49
--- NOTE | 2020-11-02 06:07 | Progress Note - Hospitalist ---
Subjective HPI/CC On Admission Date Seen by Provider: Nov 02, 2020 Time Seen by Provider: 10:00 Chief complaint: Inability to care for self History of present illness: This is a 65-year-old white female clinic patient of [facility] who suffered a stroke in 2002 with left-sided weakness remains bedbound who presents to the hospital after her caregiver boyfriend was hospitalized in the same hospital and unable to care for self. Patient was found to be in atrocious living conditions with infestation. Patient is c urrently requiring a Leiva catheter and we will restart all of her home medication. advisory services associate will be consulted. Subjective/Events-last exam Pt doing pretty well Just lays in bed, bed bound Refuses to use [employer] Lift to get up Going to [facility] tomorrow IV fluids will be initiated with creatinine 3.4 to optimize that Maintain Zyvox and Rocephin until all cultures are completed and Hgb is 8. Review of Systems General: Fatigue, Malaise Focused Exam Lactate Level Objective Exam Vital Signs Vital Signs Date Time Temp Pulse Resp B/P (MAP) Pulse Ox O2 Delivery O2 Flow Rate FiO2 11/02/20 23:20 36.1 70 18 113/53 (73) 98 Room Air Capillary Refill : Less Than 3 Seconds General Appearance: No Apparent Distress, WD/WN, Chronically ill, Obese Respiratory: Lungs Clear Cardiovascular: Regular Rate, Rhythm Neurologic/Psychiatric: Alert, Oriented x3 Results/Procedures Lab Laboratory Tests 11/02/20 05:53 Patient resulted labs reviewed. Assessment/Plan Assessment and Plan Assess & Plan/Chief Complaint Assessment: Inability to care for self at home due to bedbound status and caregiver in the hospital Previous stroke 2002 with left-sided weakness Staph bacteremia placed on Zyvox Chronic kidney disease UTI on Rocephin Severe debility bedbound Diabetes mellitus Seizure disorder Morbid obesity with BMI of 69 Plan: Supportive care Leiva catheter Home meds 10/31/2020: Home meds PT and OT senior care placement Antibiotics 11/01/2020: Monitor creatinine Continue antibiotics senior care at discharge 11/02/2020: Monitor creatinine Gentle IV fluids Continue antibiotics Diagnosis/Problems Diagnosis/Problems (1) General weakness Status: Acute (2) Left hemiparesis Status: Acute (3) Acute kidney injury Status: Acute THEA ROSE DO Nov 02, 2020 06:07
[2020-11-02 06:16] LABS: BASOPHILS % (AUTO) 1 % (0-10); EOSINOPHILS # (AUTO) 0.1 10^3/uL (0.0-0.3); EOSINOPHILS % (AUTO) 2 % (0-10); HEMATOCRIT 26 % (35-52); LYMPHOCYTES # (AUTO) 1.2 10^3/uL (1.0-4.0); LYMPHOCYTES % (AUTO) 20 % (12-44); MEAN CORPUSCULAR HEMOGLOBIN 31 pg (25-34); MEAN CORPUSCULAR HGB CONC 31 g/dL (32-36); MEAN CORPUSCULAR VOLUME 102 fL (80-99); MEAN PLATELET VOLUME 9.9 fL (9.0-12.2); MONOCYTES # (AUTO) 0.5 10^3/uL (0.0-1.0); MONOCYTES % (AUTO) 8 % (0-12); NEUTROPHILS # (AUTO) 4.2 10^3/uL (1.8-7.8); NEUTROPHILS % (AUTO) 69 % (42-75); PLATELET COUNT 133 10^3/uL (130-400); WHITE BLOOD COUNT 6.1 10^3/uL (4.3-11.0)
[2020-11-02 06:30] LABS: ALBUMIN 2.8 GM/DL (3.2-4.5); CHLORIDE 110 MMOL/L (98-107); POTASSIUM 5.6 MMOL/L (3.6-5.0)
[2020-11-02 06:31] LABS: SODIUM 137 MMOL/L (135-145)
[2020-11-02 06:32] LABS: CALCIUM 7.2 MG/DL (8.5-10.1)
[2020-11-02 06:33] LABS: GLUCOSE 117 MG/DL (70-105); TOTAL PROTEIN 5.7 GM/DL (6.4-8.2)
[2020-11-02 06:34] LABS: CARBON DIOXIDE 18 MMOL/L (21-32)
[2020-11-02 06:35] LABS: BILIRUBIN,TOTAL 0.1 MG/DL (0.1-1.0)
[2020-11-02 06:36] LABS: ALKALINE PHOSPHATASE 69 U/L (40-136); CREATININE SERUM 3.43 MG/DL (0.60-1.30); GFR ESTIMATED 13
[2020-11-02 06:37] LABS: BUN/CREATININE RATIO 16
[2020-11-02] MEDS: inSUlin ASPART (NovoLOG) 1 UNIT/0.01 ML (CHARGE PER UNIT) SC SCH ×4 (06:37→21:36)
[2020-11-02 06:39] LABS: ALANINE AMINOTRANSFERASE < 6 U/L (0-55)
[2020-11-02 07:45] VITALS: BP 112/55
[2020-11-02] MEDS: glipiZIDE 5 MG (GLUCOTROL) TAB PO SCH (08:50)
[2020-11-02] MEDS: PHENYTOIN 100 MG (DILANTIN) CAP PO SCH ×2 (08:50→21:24)
[2020-11-02] MEDS: LORazepam 0.5 MG (ATIVAN) TABLET PO SCH ×2 (08:50→21:23)
[2020-11-02] MEDS: LINEZOLID IVPB 300 ML IV SCH ×2 (08:50→21:23)
[2020-11-02] MEDS: DARIFENACIN 7.5 MG PO SCH ×2 (08:50→21:23)
[2020-11-02] MEDS: SERTRALINE 100 MG (ZOLOFT) TAB PO SCH (08:50)
[2020-11-02] MEDS: MICONAZOLE 2% POWDER (DESENEX AF) 90 GM TOP SCH ×2 (11:25→21:25)
[2020-11-02] MEDS: NS IV 1000 ML 1,000 ML IV SCH (11:26)
--- NOTE | 2020-11-02 15:59 | Physician Query Clarification ---
Physician Query-General Query to Physician: The medical record reflects the following clinical scenario: The patient, in the setting of History/Risk factors, "Atrocious living conditions", Morbid obesity currently requiring an indwelling barbosa cath , unable to care for herself Clinical Findings "chronic cath POA", with sediment in urine and urine culture growing E. Coli Treatment Barbosa cath replaced, IV ABX, meticulous cleaning/pericare Question: Can you specify if the Urinary tract infection is due to/associated with indwelling Urinary catheter? 1. Yes - Urinary tract infection is due to/associated with indwelling urinary catheter 2. No - Urinary tract infection is not due to/associated with indwelling urinary catheter 3. Other, with explanation of the clinical findings 4. Clinically undetermined, no explanation for the clinical findings Please clarify and document your clinical opinion in the Progress Notes and Discharge Summary including the definitive and/or presumptive diagnosis, (suspected or probable), related to the above clinical findings. Please include clinical findings supporting your diagnosis. In responding to this query, please exercise your independent professional judgment. The purpose of this communication is to more accurately reflect the complexity of your patients condition. The fact that a question is asked does not imply that any particular answer is desired or expected. Please remember a lack of response to the above will prompt a phone page by CDI/coding staff Thank you for timely response to this clarification. Rosaura Grimes MSN, RN [phone] [email or web address] PHYSICIAN RESPONSE: Based on the clinical findings in the record, please respond to the query above on this document as an addendum. Physician Response: Physician Response 1 If you have questions please contact: Die Press Operator: Ext: Thank you for your time and cooperation. Clinical Billing And Quality Technician/Die Press Operator This is a permanent part of the medical record ROSAURA GRIMES Nov 02, 2020 15:59 THEA ROSE DO Nov 02, 2020 21:48
[2020-11-02 16:00] VITALS: BP 140/65
[2020-11-02] MEDS: cefTRIAXone 1,000 MG in WATER (STERILE) FOR INJECTION 10 ML IV SCH (16:31)
[2020-11-02] MEDS: GABAPENTIN 100 MG (NEURONTIN) CAP PO SCH (21:23)
[2020-11-02] MEDS: MONTELUKAST 10 MG (SINGULAIR) TAB PO SCH (21:23)
[2020-11-02] MEDS: SIMvastatin 20 MG (ZOCOR) TAB PO SCH (21:23)
[2020-11-02] MEDS: ENOXAPARIN 30 MG/0.3 ML (LOVENOX) SYR SC SCH (21:36)
[2020-11-02] MEDS: SIMETHICONE 80 MG (MYLICON) CHEW PO PRN (22:39)
[2020-11-02 23:20] VITALS: BP 113/53
[2020-11-03] MEDS: inSUlin ASPART (NovoLOG) 1 UNIT/0.01 ML (CHARGE PER UNIT) SC SCH ×2 (05:24→12:00)
[2020-11-03] MEDS: NS IV 1000 ML 1,000 ML IV SCH (05:37)
[2020-11-03 06:17] LABS: BASOPHILS % (AUTO) 1 % (0-10); EOSINOPHILS # (AUTO) 0.1 10^3/uL (0.0-0.3); EOSINOPHILS % (AUTO) 2 % (0-10); HEMATOCRIT 27 % (35-52); HEMOGLOBIN 8.3 g/dL (11.5-16.0); LYMPHOCYTES % (AUTO) 16 % (12-44); MEAN CORPUSCULAR HEMOGLOBIN 32 pg (25-34); MEAN CORPUSCULAR HGB CONC 31 g/dL (32-36); MEAN CORPUSCULAR VOLUME 102 fL (80-99); MEAN PLATELET VOLUME 9.7 fL (9.0-12.2); MONOCYTES # (AUTO) 0.5 10^3/uL (0.0-1.0); MONOCYTES % (AUTO) 8 % (0-12); NEUTROPHILS # (AUTO) 4.3 10^3/uL (1.8-7.8); NEUTROPHILS % (AUTO) 73 % (42-75); PLATELET COUNT 132 10^3/uL (130-400); WHITE BLOOD COUNT 5.9 10^3/uL (4.3-11.0)
[2020-11-03 06:34] LABS: ALBUMIN 2.8 GM/DL (3.2-4.5); POTASSIUM 5.9 MMOL/L (3.6-5.0)
[2020-11-03 06:35] LABS: CALCIUM 7.3 MG/DL (8.5-10.1)
[2020-11-03 06:36] LABS: TOTAL PROTEIN 5.7 GM/DL (6.4-8.2)
[2020-11-03 06:38] LABS: BILIRUBIN,TOTAL 0.1 MG/DL (0.1-1.0)
[2020-11-03 06:40] LABS: CREATININE SERUM 3.33 MG/DL (0.60-1.30)
[2020-11-03 08:07] VITALS: BP 118/81
[2020-11-03] MEDS: LINEZOLID IVPB 300 ML IV SCH (08:51)
[2020-11-03] MEDS: LORazepam 0.5 MG (ATIVAN) TABLET PO SCH (08:52)
[2020-11-03] MEDS: SERTRALINE 100 MG (ZOLOFT) TAB PO SCH (08:52)
[2020-11-03] MEDS: DARIFENACIN 7.5 MG PO SCH (08:52)
[2020-11-03] MEDS: glipiZIDE 5 MG (GLUCOTROL) TAB PO SCH (08:52)
[2020-11-03] MEDS: PHENYTOIN 100 MG (DILANTIN) CAP PO SCH (08:52)
[2020-11-03] MEDS: MICONAZOLE 2% POWDER (DESENEX AF) 90 GM TOP SCH (08:52)
[2020-11-03] MEDS ORDERED: MICO90PO TOP (11:30)
[2020-11-03] MEDS ORDERED: Lorazepam PO (11:30)
--- NOTE | 2020-11-03 11:31 | Discharge Inst-Skilled Nursing ---
Discharge Inst-Skilled NF Reconcile Patient Problems Problems Reviewed?: Yes Chief Complaint Chief complaint: Inability to care for self History of present illness: This is a 65-year-old white female clinic patient of [facility] who suffered a stroke in 2002 with left-sided weakness remains bedbound who presents to the hospital after her caregiver boyfriend was hospitalized in the same hospital and unable to care for self. Patient was found to be in atrocious living conditions with infestation. Patient is currently requiring a Leiva catheter and we will restart all of her home medication. ground services instructor will be consulted. Patient Instructions Patient Problems: Debility CVA 2002 Bedridden UTI Consult/Follow Up/Orders Follow Up Appt.: PCP [place] rounds Skilled NF Admit to: [facility] ([facility]) I certify that SNF services are required to be given on an inpatient basis because of the above named patient's need for snf care on a continuing basis for the conditions(s) for which he/she was receiving inpatient hospital services prior to his/her transfer to the SNF. [facility] Order: Nursing Services, Dictaphone Typist-Evaluate & Treat, Physical Therapy-Evaluate & Treat Oxygen Delivery Method: Room Air Discharge Diet: ADA Diet Daily Activity as Tolerated: Yes Resuscitation Status: Do Not Resuscitate New & Resume Previous Orders New Medications: [Lorazepam] () 0.5 MG TABLET 0.5 MG PO BID, #30 TAB Miconazole Nitrate (Lotrimin AF) 90 Gm Powder 0 GM TOP BID for 30 Days, EA Continued Medications: Cariprazine Hydrochloride (Vraylar) 3 Mg Capsule 3 MG PO DAILY, CAP Darifenacin Hydrobromide (Darifenacin ER) 7.5 Mg Tab.er.24h 7.5 MG PO BID, TAB Gabapentin (Gabapentin) 100 Mg Capsule 100 MG PO BID, CAP Glipizide (Glipizide) 5 Mg Tablet 5 MG PO DAILY, TAB Lovastatin (Lovastatin) 40 Mg Tablet 40 MG PO HS, TAB Montelukast Sodium (Montelukast Sodium) 10 Mg Tablet 10 MG PO DAILY, TAB Phenytoin Sodium Extended (Phenytoin Sodium Extended) 100 Mg Capsule 200 MG PO HS, CAP TAKES 2 (100MG) CAPS Phenytoin Sodium Extended (Phenytoin Sodium Extended) 100 Mg Capsule 300 MG PO DAILY, CAP TAKES 3 (100MG) CAPS Sertraline HCl (Sertraline HCl) 100 Mg Tablet 150 MG PO DAILY, TAB TAKES 1 & (100MG) TABS Simethicone (Gas-X Ultra Strength) 180 Mg Capsule 180 MG PO UD PRN for GAS, CAP Discontinued Medications: Lisinopril (Lisinopril) 2.5 Mg Tablet 2.5 MG PO DAILY, TAB Naproxen Sodium (Aleve) 220 Mg Tablet 220-440 MG PO BID PRN for PAIN-MILD (1-4), TAB Rose Gaming Nov 03, 2020 11:30 ROSE GAMING DO Nov 03, 2020 11:31
[2020-11-03] MEDS ORDERED: AMOX500T2 PO (11:32)
--- NOTE | 2020-11-03 11:32 | Discharge Summary ---
Discharge Summary Hospital Course Was the Problem List Reviewed?: Yes Problems/Dx: (1) General weakness Status: Acute (2) Left hemiparesis Status: Acute (3) Acute kidney injury Status: Acute Hospital Course Date of Admission: Oct 30, 2020 at 13:55 Admission Diagnosis : Family Physician/Provider: Darian/Donnell,[facility] Date of Discharge: 11/03/20 Discharge Diagnosis: Severe weakness, bedridden status, CVA in 2002, UTI, contaminated of blood cultures, morbid obesity BMI 69 Hospital Course: Patient had a standard hospital course after she was admitted after being removed from atrocious living conditions and her nursing aide being hospitalized. She was discharged to [facility]. UTI treated with broad-spectrum antibiotics and changed to amoxicillin. Blood cultures were positive for staph but that was revealed to be a contaminant. Labs and Pending Lab Test: Laboratory Tests 11/02/20 15:33: Glucometer 130H 11/02/20 20:03: Glucometer 252H 11/03/20 05:17: Glucometer 125H 11/03/20 06:10: White Blood Count 5.9, Red Blood Count 2.61L, Hemoglobin 8.3L, Hematocrit 27L, Mean Corpuscular Volume 102H, Mean Corpuscular Hemoglobin 32, Mean Corpuscular Hemoglobin Concent 31L, Red Cell Distribution Width 13.2, Platelet Count 132, Mean Platelet Volume 9.7, Immature Granulocyte % (Auto) 1, Neutrophils (%) (Auto) 73, Lymphocytes (%) (Auto) 16, Monocytes (%) (Auto) 8, Eosinophils (%) (Auto) 2, Basophils (%) (Auto) 1, Neutrophils # (Auto) 4.3, Lymphocytes # (Auto) 1.0, Monocytes # (Auto) 0.5, Eosinophils # (Auto) 0.1, Basophils # (Auto) 0.0, Immature Granulocyte # (Auto) 0.0, Sodium Level 136, Potassium Level 5.9H, Chloride Level 108H, Carbon Dioxide Level 19L, Anion Gap 9, Blood Urea Nitrogen 52H, Creatinine 3.33H, Estimat Glomerular Filtration Rate 14, BUN/Creatinine Ratio 16, Glucose Level 111H, Calcium Level 7.3L, Corrected Calcium 8.3L, Total Bilirubin 0.1, Aspartate Amino Transf (AST/SGOT) 9, Alanine Aminotransferase (ALT/SGPT) 7, Alkaline Phosphatase 75, Total Protein 5.7L, Albumin 2.8L 11/03/20 10:42: Glucometer 234H Microbiology 10/30/20 Urine Culture - Final, Complete Escherichia coli 10/30/20 Blood Culture - Final, Complete Staphylococcus hominis Staphylococcus hominis#2 Home Meds Active Lotrimin AF (Miconazole Nitrate) 90 Gm Powder 0 Gm TOP BID 30 Days [Lorazepam] 0.5 MG Tablet 0.5 Mg PO BID Reported Gas-X Ultra Strength (Simethicone) 180 Mg Capsule 180 Mg PO UD PRN Aleve (Naproxen Sodium) 220 Mg Tablet 220-440 Mg PO BID PRN Phenytoin Sodium Extended 100 Mg Capsule 300 Mg PO DAILY TAKES 3 (100MG) CAPS Vraylar (Cariprazine Hydrochloride) 3 Mg Capsule 3 Mg PO DAILY Lovastatin 40 Mg Tablet 40 Mg PO HS Darifenacin ER (Darifenacin Hydrobromide) 7.5 Mg Tab.er.24h 7.5 Mg PO BID Lisinopril 2.5 Mg Tablet 2.5 Mg PO DAILY Glipizide 5 Mg Tablet 5 Mg PO DAILY Phenytoin Sodium Extended 100 Mg Capsule 200 Mg PO HS TAKES 2 (100MG) CAPS Gabapentin 100 Mg Capsule 100 Mg PO BID Sertraline HCl 100 Mg Tablet 150 Mg PO DAILY TAKES 1 & (100MG) TABS Montelukast Sodium 10 Mg Tablet 10 Mg PO DAILY Assessment/Pt Instructions [facility] in 1 week Discharge Planning: <30 minutes discharge planning Discharge Instructions Discharge Diet: ADA Diet Discharge Physical Examination Vital Signs Vital Signs Date Time Temp Pulse Resp B/P (MAP) Pulse Ox O2 Delivery O2 Flow Rate FiO2 11/03/20 08:07 36.0 72 20 118/81 (93) 100 Room Air General Appearance: No Apparent Distress, WD/WN, Chronically ill, Obese Allergies: Coded Allergies: adhesive tape (Verified Allergy, Intermediate, 10/30/20) PT REPORTS IT PULLS SKIN OFF AND SHE GETS BLISTERS FROM TAPE ADHESIVE latex (Verified Allergy, Intermediate, 10/30/20) PT REPORTS BLADDER SPASMS WHEN USING LATEX SPARKS CATH hydrocodone (Verified Allergy, Unknown, 01/16/06) Discharge Summary Date of Admission Oct 30, 2020 at 13:55 Date of Discharge Discharge Date: Nov 03, 2020 Admission Diagnosis Assessment: Inability to care for self at home due to bedbound status and caregiver in the hospital Previous stroke 2002 with left-sided weakness Severe debility bedbound Diabetes mellitus Seizure disorder Morbid obesity with BMI of 69 Plan: Supportive care Sparks catheter Home meds Discharge Diagnosis Assessment: Inability to care for self at home due to bedbound status and caregiver in the hospital Previous stroke 2002 with left-sided weakness Staph bacteremia placed on Zyvox Chronic kidney disease UTI on Rocephin Severe debility bedbound Diabetes mellitus Seizure disorder Morbid obesity with BMI of 69 Plan: Supportive care Sparks catheter Home meds 10/31/2020: Home meds PT and OT halfway placement Antibiotics 11/01/2020: Monitor creatinine Continue antibiotics halfway at discharge 11/02/2020: Monitor creatinine Gentle IV fluids Continue antibiotics (1) General weakness Status: Acute (2) Left hemiparesis Status: Acute (3) Acute kidney injury Status: Acute THEA ROSE DO Nov 03, 2020 11:32
== END 2020-11-03 14:50 | DRG 57 ==
LOC: EDUNIT# 11:22 → ER 11:28 → 4TH 13:55
PROVIDERS: ADMIT Internal Medicine; ATTEND Internal Medicine
DX: I69.354 Hemiplegia and hemiparesis following cerebral infarction affecting left non-dominant side (principal); T83.518A Infection and inflammatory reaction due to other urinary catheter, initial encounter; N17.9 Acute kidney failure, unspecified; N39.0 Urinary tract infection, site not specified; Z68.44 Body mass index [BMI] 60.0-69.9, adult; R78.81 Bacteremia; R53.81 Other malaise; E11.22 Type 2 diabetes mellitus with diabetic chronic kidney disease; G40.909 Epilepsy, unspecified, not intractable, without status epilepticus; E66.01 Morbid (severe) obesity due to excess calories; N18.9 Chronic kidney disease, unspecified; B95.8 Unspecified staphylococcus as the cause of diseases classified elsewhere; B96.20 Unspecified Escherichia coli [E. coli] as the cause of diseases classified elsewhere; Z74.01 Bed confinement status
CPT/HCPCS: 36410; 36415; 51702; 71045; 76641; 76937; 80053; 80185; 81000; 82947; 83540; 83605; 85025; 85610; 85730; 87040; 87077; 87088; 87186; 96360; 96361

== ENCOUNTER 2020-11-17 15:54 | Inpatient (IN) | payer MEDICARE ==
[~2020-11-17] VITALS: Ht 160 cm; Wt 130.1 kg
[~2020-11-17 15:54] MED LIST changes: +AMOX500T2 PO; +CARI3CAP PO; +GABA-486 PO; +GLIP5TAB13 PO; +LISI2.5T PO; +LOVA40TA2 PO; +Lorazepam PO; +MICO90PO TOP; +MONT10TA32 PO; +NAPR220T66 PO; +PHEN100C11 PO; +SERT-414 PO; +SIME180C4 PO; +[UNRECOGNIZED DRUG - CODE] PO
--- NOTE | 2020-11-17 16:02 | ED General ---
General Stated Complaint: HYPERKALEMIA Source of Information: Patient Exam Limitations: No Limitations History of Present Illness Date Seen by Provider: Nov 17, 2020 Time Seen by Provider: 16:01 Initial Comments To ER by EMS from [facility] with reports of hyperkalemia. Potassium on yesterday's labs found to be 6.5. She was found to have a creatinine of 2.67 and a BUN of 44. Her hemoglobin 7.9. She feels fine and has no complaints. Timing/Duration: 1-2 Days Severity: Mild Associated Systoms: Denies Symptoms Allergies and Home Medications Allergies Coded Allergies: adhesive tape (Verified Allergy, Intermediate, 10/30/20) PT REPORTS IT PULLS SKIN OFF AND SHE GETS BLISTERS FROM TAPE ADHESIVE latex (Verified Allergy, Intermediate, 10/30/20) PT REPORTS BLADDER SPASMS WHEN USING LATEX SPARKS CATH hydrocodone (Verified Allergy, Unknown, 01/16/06) Home Medications Amoxicillin 500 Mg Tablet, 500 MG PO TID Prescribed by: THEA ROSE on 11/03/20 1132 Cariprazine Hydrochloride 3 Mg Capsule, 3 MG PO DAILY, (Reported) Darifenacin Hydrobromide 7.5 Mg Tab.er.24h, 7.5 MG PO BID, (Reported) Gabapentin 100 Mg Capsule, 100 MG PO BID, (Reported) Glipizide 5 Mg Tablet, 5 MG PO DAILY, (Reported) Lovastatin 40 Mg Tablet, 40 MG PO HS, (Reported) Miconazole Nitrate 90 Gm Powder, 0 GM TOP BID Prescribed by: THEA ROSE on 11/03/20 1130 Montelukast Sodium 10 Mg Tablet, 10 MG PO DAILY, (Reported) Phenytoin Sodium Extended 100 Mg Capsule, 200 MG PO HS, (Reported) TAKES 2 (100MG) CAPS Phenytoin Sodium Extended 100 Mg Capsule, 300 MG PO DAILY, (Reported) TAKES 3 (100MG) CAPS Sertraline HCl 100 Mg Tablet, 150 MG PO DAILY, (Reported) TAKES 1 & (100MG) TABS Simethicone 180 Mg Capsule, 180 MG PO UD PRN for GAS, (Reported) [Lorazepam] 0.5 MG TABLET, 0.5 MG PO BID Prescribed by: THEA ROSE on 11/03/20 1130 Patient Home Medication List Home Medication List Reviewed: Yes Review of Systems Review of Systems Constitutional: see HPI EENTM: see HPI Respiratory: no symptoms reported Cardiovascular: no symptoms reported Genitourinary: no symptoms reported Musculoskeletal: no symptoms reported Skin: no symptoms reported Psychiatric/Neurological: No Symptoms Reported Hematologic/Lymphatic: No Symptoms Reported Past Aceruyh-Ewfzmx-Krybjn Hx Past Medical History Surgeries: Yes Section, Gallbladder, Tonsillectomy Respiratory: No (has a nebulizer at home, denies respiratory) Cardiac: Yes Neurological: Yes (R SIDE PARALYSIS) Seizure Disorder, Stroke Reproductive Disorders: No Gastrointestinal: No Musculoskeletal: Yes (MORBID OBESITY) Endocrine: Yes Diabetes, Non-Insulin dep Cancer: No Psychosocial: No Integumentary: No Blood Disorders: No Family Medical History No Pertinent Family Hx Physical Exam Vital Signs Vital Signs - First Documented 11/17/20 15:54 Temp 36.0 Pulse 67 Resp 16 B/P (MAP) 180/72 (108) Pulse Ox 98 O2 Delivery Room Air Capillary Refill : Height, Weight, BMI Height: 5'3" Weight: 377lbs. oz. 171.934276ek; 69.14 BMI Method:Stated General Appearance: No Apparent Distress, Obese Eyes: Bilateral Eye Normal Inspection, Bilateral Eye PERRL HEENT: PERRL/EOMI, TMs Normal Neck: Full Range of Motion, Normal Inspection Respiratory: No Accessory Muscle Use, No Respiratory Distress Cardiovascular: Regular Rate, Rhythm, Normal Peripheral Pulses Extremity: Normal Capillary Refill, Normal Inspection, Other (Pre-existing left-sided hemiparesis) Neurologic/Psychiatric: Alert, Oriented x3 Skin: Normal Color, Warm/Dry Progress/Results/Core Measures Suspected Sepsis SIRS Temperature: Pulse: Respiratory Rate: Laboratory Tests 11/17/20 15:57: White Blood Count 5.9 Blood Pressure / Mean: Laboratory Tests 11/17/20 15:57: Creatinine 2.72H, Platelet Count 156, Total Bilirubin 0.2 Results/Orders Lab Results Laboratory Tests Test 11/17/20 15:57 Range/Units White Blood Count 5.9 4.3-11.0 10^3/uL Red Blood Count 2.71 L 3.80-5.11 10^6/uL Hemoglobin 8.7 L 11.5-16.0 g/dL Hematocrit 29 L 35-52 % Mean Corpuscular Volume 106 H 80-99 fL Mean Corpuscular Hemoglobin 32 25-34 pg Mean Corpuscular Hemoglobin Concent 30 L 32-36 g/dL Red Cell Distribution Width 13.6 10.0-14.5 % Platelet Count 156 130-400 10^3/uL Mean Platelet Volume 10.0 9.0-12.2 fL Immature Granulocyte % (Auto) 0 % Neutrophils (%) (Auto) 64 42-75 % Lymphocytes (%) (Auto) 25 12-44 % Monocytes (%) (Auto) 7 0-12 % Eosinophils (%) (Auto) 3 0-10 % Basophils (%) (Auto) 1 0-10 % Neutrophils # (Auto) 3.8 1.8-7.8 10^3/uL Lymphocytes # (Auto) 1.5 1.0-4.0 10^3/uL Monocytes # (Auto) 0.4 0.0-1.0 10^3/uL Eosinophils # (Auto) 0.2 0.0-0.3 10^3/uL Basophils # (Auto) 0.0 0.0-0.1 10^3/uL Immature Granulocyte # (Auto) 0.0 0.0-0.1 10^3/uL Sodium Level 138 135-145 MMOL/L Potassium Level 6.8 *H 3.6-5.0 MMOL/L Chloride Level 111 H 98-107 MMOL/L Carbon Dioxide Level 15 L 21-32 MMOL/L Anion Gap 12 5-14 MMOL/L Blood Urea Nitrogen 45 H 7-18 MG/DL Creatinine 2.72 H 0.60-1.30 MG/DL Estimat Glomerular Filtration Rate 18 BUN/Creatinine Ratio 17 Glucose Level 181 H 70-105 MG/DL Calcium Level 7.9 L 8.5-10.1 MG/DL Corrected Calcium 8.4 L 8.5-10.1 MG/DL Total Bilirubin 0.2 0.1-1.0 MG/DL Aspartate Amino Transf (AST/SGOT) 11 5-34 U/L Alanine Aminotransferase (ALT/SGPT) 13 0-55 U/L Alkaline Phosphatase 116 40-136 U/L Total Protein 6.9 6.4-8.2 GM/DL Albumin 3.4 3.2-4.5 GM/DL My Orders Orders - MAYCO STRANGE APRN Ekg Tracing (11/17/20 16:02) Cbc With Automated Diff (11/17/20 16:09) Comprehensive Metabolic Panel (11/17/20 16:09) Ed Iv/Invasive Line Start (11/17/20 16:09) Lactated Ringers (Lr 1000 Ml Iv Solution (11/17/20 17:00) Insulin (Regular) Human (Novolin R (Per (11/17/20 17:00) D50w (Emergency) Syringe (Dextrose 50% 5 (11/17/20 17:00) Sodium Polystyrene Sulfonate (Kayexalate (11/17/20 17:00) Sodium Polystyrene Sulfonate (Kayexalate (11/17/20 17:38) Medications Given in ED Current Medications Medications Dose Ordered Sig/Albert Route Start Time Stop Time Status Last Admin Dose Admin Dextrose 50 ml ONCE ONCE IV 11/17/20 17:00 11/17/20 17:01 DC 11/17/20 17:29 50 ML Insulin Human Regular 10 unit ONCE ONCE IV 11/17/20 17:00 11/17/20 17:01 DC 11/17/20 17:31 10 UNIT Sodium Polystyrene Sulfonate 30 gm ONCE ONCE PO 11/17/20 17:00 11/17/20 17:01 DC 11/17/20 17:40 30 GM Vital Signs/I&O 11/17/20 15:54 Temp 36.0 Pulse 67 Resp 16 B/P (MAP) 180/72 (108) Pulse Ox 98 O2 Delivery Room Air Capillary Refill : Departure Communication (Admissions) [id number] discussed the case with Dr. Triplett. Concerns given the low bicarb the high potassium and the low GFR that this hyperkalemia is secondary to kidney dysfunction. Would recommend transfer to facility with dialysis services. She is not acutely volume overloaded but she is with acute hyperkalemia. There are no EKG changes secondary to this, her EKG shows sinus rhythm rate of 67 QRS 100 ms QTC 452 ms. I discussed with the patient going to facility for dialysis and she is adamant that she does not want to have dialysis even if it is necessary. I discussed with her that not having this could result in hyperkalemia that causes arrhythmias and . She states that she still does not want it. History of stroke with left-sided hemiparesis. We will honor her wishes, keep her here doing the best that we can without nephrology and she is happy with this plan and aware of the risks associated with it. I also discussed CODE STATUS with her. She states that she wants to be a DO NOT RESUSCITATE in the event that her heart stops unexpectedly. Impression Primary Impression: Hyperkalemia Additional Impression: Left hemiparesis Disposition: ADMITTED INPATIENT Condition: Stable Admissions Decision to Admit Reason: Admit from ER (General) Decision to Admit/Date: Nov 17, 2020 Time/Decision to Admit Time: 17:32 Departure-Patient Inst. Referrals: [facility] (PCP/Family) Primary Care Physician MAYCO STRANGE APRN Nov 17, 2020 16:02
[2020-11-17 16:16] LABS: ALBUMIN 3.4 GM/DL (3.2-4.5); BASOPHILS % (AUTO) 1 % (0-10); EOSINOPHILS # (AUTO) 0.2 10^3/uL (0.0-0.3); EOSINOPHILS % (AUTO) 3 % (0-10); HEMATOCRIT 29 % (35-52); HEMOGLOBIN 8.7 g/dL (11.5-16.0); LYMPHOCYTES # (AUTO) 1.5 10^3/uL (1.0-4.0); LYMPHOCYTES % (AUTO) 25 % (12-44); MEAN CORPUSCULAR HEMOGLOBIN 32 pg (25-34); MEAN CORPUSCULAR HGB CONC 30 g/dL (32-36); MEAN CORPUSCULAR VOLUME 106 fL (80-99); MONOCYTES # (AUTO) 0.4 10^3/uL (0.0-1.0); MONOCYTES % (AUTO) 7 % (0-12); NEUTROPHILS # (AUTO) 3.8 10^3/uL (1.8-7.8); NEUTROPHILS % (AUTO) 64 % (42-75); PLATELET COUNT 156 10^3/uL (130-400); WHITE BLOOD COUNT 5.9 10^3/uL (4.3-11.0)
[2020-11-17 16:18] LABS: CALCIUM 7.9 MG/DL (8.5-10.1)
[2020-11-17 16:19] LABS: TOTAL PROTEIN 6.9 GM/DL (6.4-8.2)
[2020-11-17 16:20] LABS: BILIRUBIN,TOTAL 0.2 MG/DL (0.1-1.0)
[2020-11-17 16:30] LABS: CREATININE SERUM 2.72 MG/DL (0.60-1.30)
[2020-11-17 16:36] LABS: POTASSIUM 6.8 MMOL/L (3.6-5.0)
[2020-11-17] MEDS ORDERED: inSUlin (REGULAR) HUMAN 1 UNIT/0.01 ML (CHARGE PER UNIT) IV ONE (17:00)
[2020-11-17] MEDS ORDERED: LACTATED RINGERS 1,000 ML IV SCH (17:00)
[2020-11-17] MEDS ORDERED: SOD POLYSTERENE 15 GM/60 ML (KAYEXALATE) UNIT DOSE PO ONE (17:00)
[2020-11-17] MEDS ORDERED: DEXTROSE 50% 50 ML (IMS) SYR IV ONE (17:00)
[2020-11-17] MEDS ORDERED: SOD POLYSTERENE 15 GM/60 ML (KAYEXALATE) UNIT DOSE ONE (17:38)
[2020-11-17] MEDS ORDERED: diphenhydrAMINE 25 MG TAB (BENADRYL) PO PRN (18:45)
[2020-11-17] MEDS ORDERED: ACETAMINOPHEN 325 MG TABLET PO PRN (18:45)
[2020-11-17] MEDS ORDERED: MELATONIN 3 MG TABLET PO PRN (18:45)
[2020-11-17] MEDS ORDERED: polyethylene glycoL POWDER 17 GM (MIRALAX) PACK PO PRN (18:45)
[2020-11-17] MEDS ORDERED: ANTACID SUSP 30 ML UDC (MYLANTA) PO PRN (18:45)
[2020-11-17] MEDS ORDERED: ONDANSETRON 4 MG/2 ML (SDV) Z0FRAN IV PRN (18:45)
[2020-11-17] MEDS ORDERED: ONDANSETRON 4 MG (ZOFRAN) ORAL DISSOLVE TAB PO PRN (18:45)
[2020-11-17] MEDS ORDERED: hydrALAZINE (APESOLINE) 20 MG/ML VIAL IV PRN (18:45)
[2020-11-17] MEDS ORDERED: FUROSEMIDE 40 MG/4 ML INJ (LASIX) IVP NR (19:00)
[2020-11-17] MEDS ORDERED: D5 1/2 NS 1000 ML IV SOLUTION 1,000 ML IV SCH (19:15)
[2020-11-17] MEDS ORDERED: CATHETER FLUSH 10 ML SYR IV PRN (19:15)
[2020-11-17] MEDS: SENNOSIDES 8.6 MG (SENOKOT) TAB PO SCH (19:53)
[2020-11-17] MEDS: DOCUSATE SODIUM 100 MG (COLACE) CAP PO SCH (19:53)
[2020-11-17] MEDS: SODIUM BICARBONATE 650 MG TABLET (NON-FORMULARY) PO SCH (19:53)
[2020-11-17 19:58] VITALS: BP 148/69
[2020-11-18] VITALS (7 sets, daily range): BP systolic 131–182; BP diastolic 59–86
[2020-11-18 05:54] LABS: BASOPHILS % (AUTO) 0 % (0-10); EOSINOPHILS # (AUTO) 0.1 10^3/uL (0.0-0.3); EOSINOPHILS % (AUTO) 3 % (0-10); HEMATOCRIT 26 % (35-52); LYMPHOCYTES % (AUTO) 22 % (12-44); MEAN CORPUSCULAR HEMOGLOBIN 32 pg (25-34); MEAN CORPUSCULAR HGB CONC 31 g/dL (32-36); MEAN CORPUSCULAR VOLUME 104 fL (80-99); MEAN PLATELET VOLUME 9.8 fL (9.0-12.2); MONOCYTES # (AUTO) 0.5 10^3/uL (0.0-1.0); MONOCYTES % (AUTO) 10 % (0-12); NEUTROPHILS % (AUTO) 64 % (42-75); PLATELET COUNT 148 10^3/uL (130-400); WHITE BLOOD COUNT 4.6 10^3/uL (4.3-11.0)
[2020-11-18 06:10] LABS: POTASSIUM 5.9 MMOL/L (3.6-5.0)
[2020-11-18 06:11] LABS: CALCIUM 7.8 MG/DL (8.5-10.1)
[2020-11-18 06:15] LABS: CREATININE SERUM 2.5 MG/DL (0.60-1.30)
[2020-11-18] MEDS ORDERED: SOD POLYSTERENE 15 GM/60 ML (KAYEXALATE) UNIT DOSE PO ONE (07:45)
[2020-11-18] MEDS ORDERED: FUROSEMIDE 40 MG/4 ML INJ (LASIX) IVP ONE (07:45)
[2020-11-18] MEDS: CALCIUM ACETATE 667 MG CAP (PHOSLO) PO SCH ×3 (08:14→17:14)
[2020-11-18] MEDS: SENNOSIDES 8.6 MG (SENOKOT) TAB PO SCH ×2 (08:14→20:47)
[2020-11-18] MEDS: SODIUM BICARBONATE 650 MG TABLET (NON-FORMULARY) PO SCH ×3 (08:14→20:45)
[2020-11-18] MEDS: FOLIC ACID 1 MG TAB PO SCH (08:14)
[2020-11-18] MEDS: DOCUSATE SODIUM 100 MG (COLACE) CAP PO SCH ×2 (08:15→20:47)
[2020-11-18] MEDS: ENOXAPARIN 60 MG/0.6 ML (LOVENOX) SYR SC SCH ×2 (10:52→23:34)
--- NOTE | 2020-11-18 11:43 | History & Physical-Hospitalist ---
History of Present Illness HPI/Chief Complaint Esthela Carrasco is a 65-year-old female with past medical history of hypertension, CKD 4, history of stroke with residual left-sided paralysis, super obesity, who presented after being found to have a high potassium level on lab work. Denies any complaints. She says she is in her normal state of health. She denies any chest pain or palpitations. She is not having any fevers or chills. She is not having any shortness of breath or cough. She is not having any abdominal pain, nausea, vomiting, or diarrhea. Her diet has not changed. She has a chronic indwelling Sparks catheter. Her medications have not been changed recently. Source: patient Exam Limitations: no limitations Date Seen 11/18/20 Time Seen by a Provider: 09:55 Attending Physician Josephine Couch MD PCP Center/[facility] Referring Physician Date of Admission Nov 17, 2020 at 17:45 Home Medications & Allergies Home Medications Reviewed patient Home Medication Reconciliation performed by pharmacy medication reconciliations machine set up technician and/or nursing. Patients Allergies have been reviewed. Allergies Allergies Coded Allergies adhesive tape (Verified Allergy, Intermediate, 10/30/20) PT REPORTS IT PULLS SKIN OFF AND SHE GETS BLISTERS FROM TAPE ADHESIVE latex (Verified Allergy, Intermediate, 10/30/20) PT REPORTS BLADDER SPASMS WHEN USING LATEX SPARKS CATH hydrocodone (Verified Allergy, Unknown, 01/16/06) Past Wtcqcvk-Jfodpn-Ecisny Hx Patient Social History Tobacco Use?: No Smoking Status: Never a Smoker Substance use?: No Alcohol Use?: No Pt feels they are or have been: No Immunizations Up To Date Date of Influenza Vaccine: Feb 02, 2014 First/Initial COVID19 Vaccinat: 10/23 Second COVID19 Vaccination Satish: just the 1st Tetanus Booster (TDap): Unknown Date of Pneumonia Vaccine: Feb 02, 2013 Current Status status: No Advance Directives: Yes Advance Directive Location: Family to bring in copy Communicates: Verbally Primary Language: [place] Preferred Spoken Language: [place]se Implanted or Applied Medical D: None Past Medical History Surgeries: Section, Gallbladder, Tonsillectomy Seizure Disorder, Stroke Diabetes, Non-Insulin dep Blood Disorders: No Family Medical History No Pertinent Family Hx Review of Systems Constitutional: no symptoms reported EENTM: no symptoms reported Respiratory: no symptoms reported Cardiovascular: no symptoms reported Gastrointestinal: no symptoms reported Genitourinary: no symptoms reported Musculoskeletal: no symptoms reported Skin: no symptoms reported Psychiatric/Neurological: No Symptoms Reported Physical Exam Physical Exam Vital Signs Vital Signs - First Documented 11/17/20 15:54 Temp 36.0 Pulse 67 Resp 16 B/P (MAP) 180/72 (108) Pulse Ox 98 O2 Delivery Room Air Capillary Refill : Less Than 3 Seconds Height, Weight, BMI Height: 5'3" Weight: 377lbs. oz. 171.677107mp; 52.96 BMI Method:Stated General Appearance: No Apparent Distress, Obese HEENT: PERRL/EOMI, Pharynx Normal Neck: Normal Inspection, Supple Respiratory: Lungs Clear, Normal Breath Sounds, No Respiratory Distress Cardiovascular: Regular Rate, Rhythm, No Murmur Gastrointestinal: Normal Bowel Sounds, Non Tender, Soft Extremity: Normal Inspection, Non Tender, Pedal Edema Neurologic/Psychiatric: Alert, Oriented x3, Normal Mood/Affect, Motor Weakness Skin: Normal Color, Warm/Dry Results Results/Procedures Labs Laboratory Tests 11/17/20 15:57 11/18/20 05:25 Patient resulted labs reviewed. Assessment/Plan Admission Diagnosis Hyperkalemia Admission Status: Inpatient Order (span 2 midnights) Reason for Inpatient Admission: Renal failure Assessment and Plan Hyperkalemia Chronic kidney disease stage IV Metabolic acidosis Hyperphosphatemia Anemia of chronic disease Folic acid deficiency Hypertension History of stroke Debility Super obesity K 6.8 on arrival, improved to 5.9 this morning Given insulin/D50 and Kayexalate in ER Started on IV Lasix Repeat Lasix this morning Repeat Kayexalate Bicarb <20 on all recent labs Begin sodium bicarbonate replacement Phosphorus elevated Begin Phoslo Hgb 8, consider erythropoetin Folic acid low on recent labs Begin folic acid supplementation Needs nephrology follow up on discharge DVT prophylaxis: Lovenox Diagnosis/Problems Diagnosis/Problems (1) Hyperkalemia Status: Acute (2) Metabolic acidosis Status: Acute (3) Hyperphosphatemia Status: Acute (4) Anemia in CKD (chronic kidney disease) Status: Acute Qualifiers: Chronic kidney disease stage: stage 4 (severe) Qualified Codes: N18.4 - Chronic kidney disease, stage 4 (severe); D63.1 - Anemia in chronic kidney disease (5) CKD (chronic kidney disease) stage 4, GFR 15-29 ml/min Status: Chronic (6) Folic acid deficiency Status: Chronic (7) Macrocytic anemia Status: Chronic (8) Hypertension associated with stage 4 chronic kidney disease due to type 2 diabetes mellitus Status: Acute (9) History of stroke Status: Chronic (10) Super obesity Status: Chronic (11) Debility Status: Chronic JOSEPHINE COUCH MD Nov 18, 2020 11:43
[2020-11-18] MEDS ORDERED: amLODIPine 10 MG (NORVASC) TAB PO ONE (12:00)
[2020-11-18] MEDS: LORazepam 0.5 MG (ATIVAN) TABLET PO SCH (23:34)
[2020-11-19 04:27] VITALS: BP 155/81
[2020-11-19 05:47] LABS: CALCIUM 7.5 MG/DL (8.5-10.1)
[2020-11-19 05:51] LABS: CREATININE SERUM 2.63 MG/DL (0.60-1.30)
--- NOTE | 2020-11-19 06:44 | Progress Note - Hospitalist ---
Subjective HPI/CC On Admission Date Seen by Provider: Nov 19, 2020 Time Seen by Provider: 11:00 Esthela Carrasco is a 65-year-old female with past medical history of hypertension, CKD 4, history of stroke with residual left-sided paralysis, super obesity, who presented after being found to have a high potassium level on lab work. Denies any complaints. She says she is in her normal state of health. She denies any chest pain or palpitations. She is not having any fevers or chills. She is not having any shortness of breath or cough. She is not having any abdominal pain, nausea, vomiting, or diarrhea. Her diet has not changed. She has a chronic indwelling Leiva catheter. Her medications have not been changed recently. Subjective/Events-last exam Patient about the same Tearful at times We will discontinue telemetry Bowels are moving Potassium doing a lot better since Kayexalate and treatment Social work for placement since she does not want to go back to [facility] [place] Refusing to turn high risk for decubitus ulcers Leiva catheter still in place Incontinent most of the time without Leiva catheter Review of Systems General: Fatigue, Malaise Objective Exam Vital Signs Vital Signs Date Time Temp Pulse Resp B/P (MAP) Pulse Ox O2 Delivery O2 Flow Rate FiO2 11/19/20 23:56 36.5 76 18 138/64 (88) 98 Room Air Capillary Refill : Less Than 3 Seconds General Appearance: No Apparent Distress, WD/WN, Chronically ill Respiratory: Lungs Clear Cardiovascular: Regular Rate, Rhythm Neurologic/Psychiatric: Alert, Oriented x3, Motor Weakness (Remote stroke) Results/Procedures Lab Patient resulted labs reviewed. Assessment/Plan Assessment and Plan Assess & Plan/Chief Complaint Assessment: Hyperkalemia Chronic kidney disease stage IV Chronic metabolic acidosis Anemia of kidney disease Folic acid deficiency Hypertension Prior stroke Super obesity Incontinence requiring Leiva catheter placement Plan: Monitor potassium THEA Guthrie DO Nov 19, 2020 06:44
[2020-11-19 06:54] LABS: BASOPHILS % (AUTO) 1 % (0-10); EOSINOPHILS # (AUTO) 0.1 10^3/uL (0.0-0.3); EOSINOPHILS % (AUTO) 2 % (0-10); HEMATOCRIT 26 % (35-52); HEMOGLOBIN 7.9 g/dL (11.5-16.0); LYMPHOCYTES # (AUTO) 0.9 10^3/uL (1.0-4.0); LYMPHOCYTES % (AUTO) 23 % (12-44); MEAN CORPUSCULAR HEMOGLOBIN 32 pg (25-34); MEAN CORPUSCULAR HGB CONC 31 g/dL (32-36); MEAN CORPUSCULAR VOLUME 105 fL (80-99); MEAN PLATELET VOLUME 10.2 fL (9.0-12.2); MONOCYTES # (AUTO) 0.4 10^3/uL (0.0-1.0); MONOCYTES % (AUTO) 10 % (0-12); NEUTROPHILS # (AUTO) 2.5 10^3/uL (1.8-7.8); NEUTROPHILS % (AUTO) 63 % (42-75); PLATELET COUNT 134 10^3/uL (130-400)
[2020-11-19 06:55] LABS: POTASSIUM 5.1 MMOL/L (3.6-5.0)
[2020-11-19 06:56] LABS: CALCIUM 7.6 MG/DL (8.5-10.1)
[2020-11-19 06:59] LABS: BILIRUBIN,TOTAL 0.2 MG/DL (0.1-1.0)
[2020-11-19 07:01] LABS: CREATININE SERUM 2.64 MG/DL (0.60-1.30)
[2020-11-19] MEDS: CALCIUM ACETATE 667 MG CAP (PHOSLO) PO SCH ×3 (07:58→17:36)
[2020-11-19] MEDS: FUROSEMIDE 40 MG (LASIX) TAB PO SCH (07:58)
[2020-11-19] MEDS: SODIUM BICARBONATE 650 MG TABLET (NON-FORMULARY) PO SCH ×3 (07:59→19:39)
[2020-11-19] MEDS: amLODIPine 5 MG (NORVASC) TAB PO SCH (07:59)
[2020-11-19] MEDS: LORazepam 0.5 MG (ATIVAN) TABLET PO SCH ×2 (07:59→19:36)
[2020-11-19] MEDS: FOLIC ACID 1 MG TAB PO SCH (07:59)
[2020-11-19] MEDS: SENNOSIDES 8.6 MG (SENOKOT) TAB PO SCH ×2 (08:02→19:37)
[2020-11-19] MEDS: DOCUSATE SODIUM 100 MG (COLACE) CAP PO SCH ×2 (08:03→19:37)
[2020-11-19 08:10] VITALS: BP 130/60
[2020-11-19 11:45] VITALS: BP 120/82
[2020-11-19 15:40] VITALS: BP 131/76
[2020-11-19] MEDS ORDERED: ENOXAPARIN 30 MG/0.3 ML (LOVENOX) SYR SC SCH (21:00)
[2020-11-19 23:56] VITALS: BP 138/64
--- NOTE | 2020-11-20 05:54 | Progress Note - Hospitalist ---
Subjective HPI/CC On Admission Date Seen by Provider: Nov 20, 2020 Esthela Carrasco is a 65-year-old female with past medical history of hypertension, CKD 4, history of stroke with residual left-sided paralysis, super obesity, who presented after being found to have a high potassium level on lab work. Denies any complaints. She says she is in her normal state of health. She denies any chest pain or palpitations. She is not having any fevers or chills. She is not having any shortness of breath or cough. She is not having any abdominal pain, nausea, vomiting, or diarrhea. Her diet has not changed. She has a chronic indwelling Leiva catheter. Her medications have not been changed recently. Objective Exam Vital Signs Vital Signs Date Time Temp Pulse Resp B/P (MAP) Pulse Ox O2 Delivery O2 Flow Rate FiO2 11/20/20 08:00 37.0 69 18 129/61 (83) 99 Room Air Capillary Refill : Less Than 3 Seconds Results/Procedures Lab Laboratory Tests 11/20/20 05:44 Patient resulted labs reviewed. Assessment/Plan Assessment and Plan Assess & Plan/Chief Complaint Assessment: Hyperkalemia Chronic kidney disease stage IV Chronic metabolic acidosis Anemia of kidney disease Folic acid deficiency Hypertension Prior stroke Super obesity Incontinence requiring Leiva catheter placement Plan: Monitor potassium THEA Guthrie DO Nov 20, 2020 05:54
[2020-11-20 06:20] LABS: BASOPHILS % (AUTO) 1 % (0-10); EOSINOPHILS # (AUTO) 0.1 10^3/uL (0.0-0.3); EOSINOPHILS % (AUTO) 2 % (0-10); HEMATOCRIT 24 % (35-52); HEMOGLOBIN 7.2 g/dL (11.5-16.0); LYMPHOCYTES % (AUTO) 27 % (12-44); MEAN CORPUSCULAR HEMOGLOBIN 32 pg (25-34); MEAN CORPUSCULAR HGB CONC 30 g/dL (32-36); MEAN CORPUSCULAR VOLUME 105 fL (80-99); MEAN PLATELET VOLUME 10.3 fL (9.0-12.2); MONOCYTES # (AUTO) 0.4 10^3/uL (0.0-1.0); MONOCYTES % (AUTO) 10 % (0-12); NEUTROPHILS # (AUTO) 2.2 10^3/uL (1.8-7.8); NEUTROPHILS % (AUTO) 60 % (42-75); PLATELET COUNT 142 10^3/uL (130-400); WHITE BLOOD COUNT 3.6 10^3/uL (4.3-11.0)
[2020-11-20 06:40] LABS: ALBUMIN 2.9 GM/DL (3.2-4.5); BILIRUBIN,TOTAL 0.2 MG/DL (0.1-1.0); CALCIUM 7.6 MG/DL (8.5-10.1); CREATININE SERUM 2.72 MG/DL (0.60-1.30); POTASSIUM 4.7 MMOL/L (3.6-5.0); TOTAL PROTEIN 5.6 GM/DL (6.4-8.2)
[2020-11-20] MEDS: CALCIUM ACETATE 667 MG CAP (PHOSLO) PO SCH ×2 (07:37→12:06)
[2020-11-20] MEDS: amLODIPine 5 MG (NORVASC) TAB PO SCH (07:38)
[2020-11-20] MEDS: LORazepam 0.5 MG (ATIVAN) TABLET PO SCH (07:38)
[2020-11-20] MEDS: SODIUM BICARBONATE 650 MG TABLET (NON-FORMULARY) PO SCH ×2 (07:38→12:06)
[2020-11-20] MEDS: FOLIC ACID 1 MG TAB PO SCH (07:38)
[2020-11-20] MEDS: FUROSEMIDE 40 MG (LASIX) TAB PO SCH (07:38)
[2020-11-20] MEDS: DOCUSATE SODIUM 100 MG (COLACE) CAP PO SCH (07:39)
[2020-11-20] MEDS: SENNOSIDES 8.6 MG (SENOKOT) TAB PO SCH (07:39)
[2020-11-20 08:00] VITALS: BP 129/61
[2020-11-20] MEDS ORDERED: NAPR220T66 PO (11:26)
[2020-11-20] MEDS ORDERED: MICO90PO TP (11:26)
[2020-11-20] MEDS ORDERED: LORA-404 PO ×3 (11:26→11:31)
[2020-11-20] MEDS ORDERED: FOLI1TAB33 PO (11:30)
[2020-11-20] MEDS ORDERED: NF-SODBICA PO (11:30)
[2020-11-20] MEDS ORDERED: ENOX30DI4 SC (11:30)
[2020-11-20] MEDS ORDERED: AMLO-250 PO (11:30)
[2020-11-20] MEDS ORDERED: CALC667C10 PO (11:30)
[2020-11-20] MEDS ORDERED: INSU100V16 SQ (11:30)
[2020-11-20] MEDS ORDERED: FURO40TA4 PO (11:30)
--- NOTE | 2020-11-20 11:32 | Discharge Summary ---
Discharge Summary Hospital Course Was the Problem List Reviewed?: Yes Problems/Dx: (1) Hyperkalemia Status: Acute (2) Metabolic acidosis Status: Acute (3) Hyperphosphatemia Status: Acute (4) Anemia in CKD (chronic kidney disease) Status: Acute Qualifiers: Qualified Codes: N18.4 - Chronic kidney disease, stage 4 (severe); D63.1 - Anemia in chronic kidney disease (5) CKD (chronic kidney disease) stage 4, GFR 15-29 ml/min Status: Chronic (6) Folic acid deficiency Status: Chronic (7) Macrocytic anemia Status: Chronic (8) Hypertension associated with stage 4 chronic kidney disease due to type 2 diabetes mellitus Status: Acute (9) History of stroke Status: Chronic (10) Super obesity Status: Chronic (11) Debility Status: Chronic Hospital Course Date of Admission: Nov 17, 2020 at 17:45 Admission Diagnosis : Family Physician/Provider: [facility] Date of Discharge: 11/20/20 Discharge Diagnosis: Hyperkalemia, acute on chronic renal failure refuses dialysis, remote stroke causing bedbound status Hospital Course: Hospital Course: Pt had a lengthy hospital course for four days. She was admitted for hyperkalemia and elevated creatinine with stage 4 kidney disease but she is DNR and does not want dialysis at any time so she was placed on Kayexelate and multiple other medications to stabilize her potassium at 4.7 at DC and creatinine of 2.72 which is back to her baseline with Hgb of 7.2. She was sent back to [facility] and she really needs to be on hospice. Labs and Pending Lab Test: Laboratory Tests 11/20/20 05:44: White Blood Count 3.6L, Red Blood Count 2.28L, Hemoglobin 7.2L, Hematocrit 24L, Mean Corpuscular Volume 105H, Mean Corpuscular Hemoglobin 32, Mean Corpuscular Hemoglobin Concent 30L, Red Cell Distribution Width 13.6, Platelet Count 142, Mean Platelet Volume 10.3, Immature Granulocyte % (Auto) 0, Neutrophils (%) (Auto) 60, Lymphocytes (%) (Auto) 27, Monocytes (%) (Auto) 10, Eosinophils (%) (Auto) 2, Basophils (%) (Auto) 1, Neutrophils # (Auto) 2.2, Lymphocytes # (Auto) 1.0, Monocytes # (Auto) 0.4, Eosinophils # (Auto) 0.1, Basophils # (Auto) 0.0, Immature Granulocyte # (Auto) 0.0, Sodium Level 140, Potassium Level 4.7, Chloride Level 112H, Carbon Dioxide Level 19L, Anion Gap 9, Blood Urea Nitrogen 45H, Creatinine 2.72H, Estimat Glomerular Filtration Rate 18, BUN/Creatinine Ratio 17, Glucose Level 149H, Calcium Level 7.6L, Corrected Calcium 8.5, Total Bilirubin 0.2, Aspartate Amino Transf (AST/SGOT) 9, Alanine Aminotransferase (ALT/SGPT) 12, Alkaline Phosphatase 89, Total Protein 5.6L, Albumin 2.9L Home Meds Active Ativan (Lorazepam) 0.5 Mg Tablet 0.5 Mg PO BID PRN 7 Days Novolog (Insulin Aspart) 100 Unit/1 Ml Susp 3 Unit SQ AC 30 Days Folic Acid 1 Mg Tablet 1 Mg PO DAILY 30 Days Sodium Bicarbonate 650 Mg Tablet 1,300 Mg PO TID 30 Days Furosemide 40 Mg Tablet 40 Mg PO DAILY 30 Days Calcium Acetate 667 Mg Capsule 667 Mg PO TIDWM 30 Days Amlodipine Besylate 5 Mg Tablet 10 Mg PO DAILY 30 Days Enoxaparin Sodium 30 Mg/0.3 Ml Syringe 30 Mg SC Q24H 14 Days Reported Aleve (Naproxen Sodium) 220 Mg Tablet 220 Mg PO Q12H PRN Lotrimin AF (Miconazole Nitrate) 90 Gm Powder 1 Applic TP BID Gas-X Ultra Strength (Simethicone) 180 Mg Capsule 180 Mg PO Q12H PRN Phenytoin Sodium Extended 100 Mg Capsule 300 Mg PO DAILY TAKES 3 (100MG) CAPS Vraylar (Cariprazine Hydrochloride) 3 Mg Capsule 3 Mg PO DAILY Lovastatin 40 Mg Tablet 40 Mg PO HS Darifenacin ER (Darifenacin Hydrobromide) 7.5 Mg Tab.er.24h 7.5 Mg PO BID Glipizide 5 Mg Tablet 5 Mg PO DAILY Phenytoin Sodium Extended 100 Mg Capsule 200 Mg PO HS TAKES 2 (100MG) CAPS Gabapentin 100 Mg Capsule 100 Mg PO BID Sertraline HCl 100 Mg Tablet 150 Mg PO DAILY TAKES 1 & (100MG) TABS Montelukast Sodium 10 Mg Tablet 10 Mg PO DAILY Assessment/Pt Instructions [facility] long term rounds Discharge Planning: <30 minutes discharge planning Discharge Physical Examination Vital Signs Vital Signs Date Time Temp Pulse Resp B/P (MAP) Pulse Ox O2 Delivery O2 Flow Rate FiO2 11/20/20 08:00 37.0 69 18 129/61 (83) 99 Room Air General Appearance: No Apparent Distress, WD/WN, Chronically ill, Obese Allergies: Coded Allergies: adhesive tape (Verified Allergy, Intermediate, 10/30/20) PT REPORTS IT PULLS SKIN OFF AND SHE GETS BLISTERS FROM TAPE ADHESIVE latex (Verified Allergy, Intermediate, 10/30/20) PT REPORTS BLADDER SPASMS WHEN USING LATEX SPARKS CATH hydrocodone (Verified Allergy, Unknown, 01/16/06) Discharge Summary Date of Admission Nov 17, 2020 at 17:45 Date of Discharge Discharge Date: Nov 20, 2020 Admission Diagnosis Hyperkalemia Discharge Diagnosis Assessment: Hyperkalemia Chronic kidney disease stage IV Chronic metabolic acidosis Anemia of kidney disease Folic acid deficiency Hypertension Prior stroke Super obesity Incontinence requiring Sparks catheter placement Plan: Monitor potassium PhosLo (1) Hyperkalemia Status: Acute (2) Metabolic acidosis Status: Acute (3) Hyperphosphatemia Status: Acute (4) Anemia in CKD (chronic kidney disease) Status: Acute Qualifiers: Qualified Codes: N18.4 - Chronic kidney disease, stage 4 (severe); D63.1 - Anemia in chronic kidney disease (5) CKD (chronic kidney disease) stage 4, GFR 15-29 ml/min Status: Chronic (6) Folic acid deficiency Status: Chronic (7) Macrocytic anemia Status: Chronic (8) Hypertension associated with stage 4 chronic kidney disease due to type 2 diabetes mellitus Status: Acute (9) History of stroke Status: Chronic (10) Super obesity Status: Chronic (11) Debility Status: Chronic THEA ROSE DO Nov 20, 2020 11:32
--- NOTE | 2020-11-20 11:37 | Discharge Inst-Skilled Nursing ---
Discharge Inst-Skilled NF Reconcile Patient Problems Problems Reviewed?: Yes Chief Complaint Esthela Carrasco is a 65-year-old female with past medical history of hypertension, CKD 4, history of stroke with residual left-sided paralysis, super obesity, who presented after being found to have a high potassium level on lab work. Denies any complaints. She says she is in her normal state of health. She denies any chest pain or palpitations. She is not having any fevers or chills. She is not having any shortness of breath or cough. She is not having any abdominal pain, nausea, vomiting, or diarrhea. Her diet has not changed. She has a chronic indwelling Leiva catheter. Her medications have not been changed recently. Patient Instructions Patient Problems: Debility Prior CVA Renal failure Goal: [place] Consult/Follow Up/Orders Skilled NF Admit to: [facility] Certification ([facility]) I certify that [facility] services are required to be given on an inpatient basis because of the above named patient's need for half-way care on a continuing basis for the conditions(s) for which he/she was receiving inpatient hospital services prior to his/her transfer to the [facility]. [facility] Facility Order: Nursing Services, Special Education Professional-Evaluate & Treat, Physical Therapy-Evaluate & Treat Oxygen Delivery Method: Room Air Resuscitation Status: Do Not Resuscitate New & Resume Previous Orders New Medications: Insulin Aspart (Novolog) 100 Unit/1 Ml Susp 3 UNIT SQ AC for 30 Days, EACH Lorazepam (Ativan) 0.5 Mg Tablet 0.5 MG PO BID PRN for ANXIETY for 7 Days, #15 TAB Amlodipine Besylate (Amlodipine Besylate) 5 Mg Tablet 10 MG PO DAILY for 30 Days, TAB Calcium Acetate (Calcium Acetate) 667 Mg Capsule 667 MG PO TIDWM for 30 Days, CAP Enoxaparin Sodium (Enoxaparin Sodium) 30 Mg/0.3 Ml Syringe 30 MG SC Q24H for 14 Days, SYRINGE Folic Acid (Folic Acid) 1 Mg Tablet 1 MG PO DAILY for 30 Days, TAB Furosemide (Furosemide) 40 Mg Tablet 40 MG PO DAILY for 30 Days, TAB Sodium Bicarbonate (Sodium Bicarbonate) 650 Mg Tablet 1300 MG PO TID for 30 Days, TAB Continued Medications: Cariprazine Hydrochloride (Vraylar) 3 Mg Capsule 3 MG PO DAILY, CAP Darifenacin Hydrobromide (Darifenacin ER) 7.5 Mg Tab.er.24h 7.5 MG PO BID, TAB Gabapentin (Gabapentin) 100 Mg Capsule 100 MG PO BID, CAP Lovastatin (Lovastatin) 40 Mg Tablet 40 MG PO HS, TAB Miconazole Nitrate (Lotrimin AF) 90 Gm Powder 1 APPLIC TP BID, EA Montelukast Sodium (Montelukast Sodium) 10 Mg Tablet 10 MG PO DAILY, TAB Phenytoin Sodium Extended (Phenytoin Sodium Extended) 100 Mg Capsule 200 MG PO HS, CAP TAKES 2 (100MG) CAPS Phenytoin Sodium Extended (Phenytoin Sodium Extended) 100 Mg Capsule 300 MG PO DAILY, CAP TAKES 3 (100MG) CAPS Sertraline HCl (Sertraline HCl) 100 Mg Tablet 150 MG PO DAILY, TAB TAKES 1 & (100MG) TABS Simethicone (Gas-X Ultra Strength) 180 Mg Capsule 180 MG PO Q12H PRN for GAS, CAP Discontinued Medications: Glipizide (Glipizide) 5 Mg Tablet 5 MG PO DAILY, TAB Naproxen Sodium (Aleve) 220 Mg Tablet 220 MG PO Q12H PRN for PAIN-MILD (1-4), TAB [employer] Nov 20, 2020 11:36 ROSE GAMING DO Nov 20, 2020 11:37
[2020-11-20 16:00] VITALS: BP 151/69
== END 2020-11-20 17:50 | DRG 683 ==
LOC: EDUNIT# 15:54 → ER 15:55 → 4TH 17:45
PROVIDERS: ADMIT Internal Medicine; ATTEND Internal Medicine
DX: N17.9 Acute kidney failure, unspecified (principal); Z68.43 Body mass index [BMI] 50.0-59.9, adult; E87.2 Acidosis; I69.354 Hemiplegia and hemiparesis following cerebral infarction affecting left non-dominant side; I12.9 Hypertensive chronic kidney disease with stage 1 through stage 4 chronic kidney disease, or unspecified chronic kidney disease; N18.4 Chronic kidney disease, stage 4 (severe); E87.5 Hyperkalemia; Z66 Do not resuscitate; E66.01 Morbid (severe) obesity due to excess calories; E11.22 Type 2 diabetes mellitus with diabetic chronic kidney disease; D63.1 Anemia in chronic kidney disease; E83.39 Other disorders of phosphorus metabolism; E53.8 Deficiency of other specified B group vitamins; R32 Unspecified urinary incontinence; Z79.84 Long term (current) use of oral hypoglycemic drugs
CPT/HCPCS: 36415; 80048; 80053; 82607; 82728; 82746; 83540; 83550; 84100; 85025; 93005